=== PATIENT | female | born 1980 | race Caucasian/White ===

== ENCOUNTER 2019-07-31 08:26 | Outpatient (CLI) | payer BC, SELFPAY ==
--- NOTE | 2019-07-31 | US_ITS ---
WS: [id number] ULTRASOUND ABDOMEN CLINICAL INFORMATION: ELEVATED LIVER ENZYMES COMPARISON: None. FINDINGS: Liver Size: Enlarged Craniocaudal length: 18.7 cm. Echogenicity: Coarse with fatty infiltration Surface nodularity: None. Mass (size and location): None. Bile ducts Intrahepatic ducts: Normal. Common bile duct diameter: 2.8 mm. Gallbladder Removed Pancreas Normal as visualized. Right kidney: Normal. Hydronephrosis: None. Size: 12.3 cm x 6.1 cm x 5.4 cm Abdominal aorta and IVC Visualized portions are normal. Ascites: None. US/US liver [id number] IMPRESSION: 1. Hepatomegaly with diffuse infiltration. 2. Gallbladder is been removed. 3. Normal common bile duct. 4. No hydronephrosis in right kidney.
== END 2019-07-31 08:27 | disposition home or self-care (01) ==
LOC: RADOUTREAD 15:29
PROVIDERS: Family Provider Internal Medicine; Visit Provider Internal Medicine
DX: K76.0 Fatty (change of) liver, not elsewhere classified (principal); R74.8 Abnormal levels of other serum enzymes
CPT/HCPCS: 76705

== ENCOUNTER → 2020-01-19 08:31 | Day surgery (SDC) | payer BC, SELFPAY ==
[2020-01-19 09:20] VITALS: BP 131/82; PULSE 91; RESP 18; TEMP 36.6; O2SAT 97
[2020-01-19] MEDS: iron sucrose 200 MG in sodium chloride 0.9% (100 ml) 100 ML 220 MG IV (09:22)
== END ==
LOC: GILAB 08:36
PROVIDERS: Family Provider Internal Medicine; Visit Provider Internal Medicine
DX: D64.9 Anemia, unspecified (principal)
CPT/HCPCS: 15852; 96365; J1756

== ENCOUNTER 2020-01-26 08:18 | Day surgery (SDC) | payer BC, SELFPAY ==
[2020-01-26 09:15] VITALS: BP 122/80; PULSE 92; RESP 18; TEMP 35.6; O2SAT 97
[2020-01-26] MEDS: iron sucrose 200 MG in sodium chloride 0.9% (100 ml) 100 ML 220 MG IV (09:26)
== END 2020-01-26 23:00 ==
PROVIDERS: Family Provider Internal Medicine; Visit Provider Internal Medicine
DX: D64.9 Anemia, unspecified (principal); M54.12 Radiculopathy, cervical region; F17.210 Nicotine dependence, cigarettes, uncomplicated
CPT/HCPCS: 96365; 99213; 99215; J1439; J1756

== ENCOUNTER → 2020-02-02 07:50 | Day surgery (SDC) | payer BC, SELFPAY ==
[2020-02-02 08:03] VITALS: BP 153/78; PULSE 103; RESP 18; TEMP 36.2; O2SAT 97; BMI 47.3
[2020-02-02] MEDS: iron sucrose 200 MG in sodium chloride 0.9% (100 ml) 100 ML 220 MG IV (08:28)
== END ==
PROVIDERS: Family Provider Internal Medicine; Visit Provider Internal Medicine
DX: D64.9 Anemia, unspecified (principal)
CPT/HCPCS: J1756

== ENCOUNTER 2020-02-03 07:08 | Day surgery (SDC) | payer BC, SELFPAY ==
[2020-01-30 08:40] VITALS: BMI 46.0
[2020-02-03] MEDS: sodium chloride 0.9% 1,000 ML 30 ML IV (07:00)
[2020-02-03 07:37] VITALS: BP 133/79; PULSE 109; RESP 18; TEMP 36.2; O2SAT 97
[2020-02-03 07:39] LABS: Glucose Point of Care 169 mg/dL (70-110)
--- NOTE | 2020-02-03 07:39 | P.ANESASSM_ITS ---
Pre-Anesthetic Assessment Pre-Anesthetic Assessment: Height/Weight: Height 1.78 m Weight 145.603 kg Temp Pulse Resp BP Pulse Ox 97.2 F L 109 H 18 133/79 97 02/03/20 07:37 02/03/20 07:37 02/03/20 07:37 02/03/20 07:37 02/03/20 07:37 Preop Diagnosis: Anemia Proposed Procedure: Operation Date: 02/03/20 08:00 Proposed Procedures p EGD/Possible biopsy/[id number] 39313 D64.9(Not Applicable) - Jefferson Plaza MD s Colonoscopy/possible biopsy possible polypectomy(Not Applicable) - Jefferson Plaza MD Familial anesthetic complications: PONV Was Beta Yuyl taken within 24 hours: N/A Last intake: NPO > 8hrs Social: Social History: Tobacco and No alcohol Exam: Pre-Anes Outpt Exam: alert, oriented x 3, clear to auscultation bilaterally and regular rate & rhythm Airway: Cervical ROM: WNL MP: 3 Dentition: False CV/HEM: CV/HEM: HTN : : None reported Hepatic: Hepatic: Cirrohsis Comments: LIND Metabolic: Metabolic: DM, Hyperlipidemia and Morbid obesity Musc/skel: Musc/skel: Lower Back Pain Anesthetic Plan: ASA status: 3 Anesthesia: MAC Risk of > 500 ml blood loss (7ml/kg in children): No PFSH Anesthesia PFSH: Medical History (Updated 01/26/20 @ 15:21 by Stacey James MD) Anemia Diabetes Endometriosis Family history of colon cancer Gastroparesis Hyperlipidemia Hypertension PCOS (polycystic ovarian syndrome) Surgical History History of back surgery (~2017) History of hysterectomy (~2016) History of laparoscopic cholecystectomy (~2006) Status post colonoscopy Family History Denies family history of Anesthesia complication Bleeding disorder Social History Smoking and tobacco status: current every day smoker cigarettes Packs smoked per day: 1 Second hand smoke exposure: No Alcohol intake: never Desire information about alcohol rehabilitation?: No Adopted: No Caregiver/support person: Yes Lives independently: Yes Household members: spouse Housing: House Marital status: service: No 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
--- NOTE | 2020-02-03 07:44 | W.PM.OPSUD ---
Surgery/Procedure H&P Update DATE OF PROCEDURE: February 03, 2020 DATE H&P PERFORMED: 01/16/20 H&P UPDATE INFORMATION: I have reviewed H&P completed within last 30 days, I have examined patient prior to procedure and No changes to prior documentation PREOP DIAGNOSIS: Anemia PLANNED PROCEDURE: Operation Date: 02/03/20 08:00 Proposed Procedures p EGD/Possible biopsy/[id number] D64.9(Not Applicable) - Jefferson Plaza MD s Colonoscopy/possible biopsy possible polypectomy(Not Applicable) - Jefferson Plaza MD
[2020-02-03 08:56] VITALS: BP 153/98; PULSE 102; RESP 16; TEMP 36.6; O2SAT 96
--- NOTE | 2020-02-03 08:58 | ANE.PACU2 ---
Inpatient post-anesthesia follow up: Airway intact: Yes Vital signs: Temperature 97.8 F Pulse Rate 102 Respiratory Rate 16 Blood Pressure 153/98 Pulse Oximetry 96 Oxygen Delivery Me thod Nasal Cannula Oxygen Flow Rate 3 Fraction of Inspir ed Oxygen Hydration adequate: Yes Nausea and vomiting: No Pain level: 1 Mental status: Baseline
[2020-02-03 09:02] VITALS: BP 115/88; PULSE 94; RESP 18; O2SAT 98
== END 2020-02-03 09:12 | disposition home or self-care (01) ==
PROVIDERS: PCP Internal Medicine; Visit Provider Surgery
PROC: 0DJ08ZZ Inspection of Upper Intestinal Tract, Via Natural or Artificial Opening Endoscopic (ICD-10-PCS; CPT 43235; principal; 2020-02-03 08:00)
PROC: 0DJD8ZZ Inspection of Lower Intestinal Tract, Via Natural or Artificial Opening Endoscopic (ICD-10-PCS; CPT 45378; 2020-02-03 08:00)
DX: D50.9 Iron deficiency anemia, unspecified (principal); I10 Essential (primary) hypertension; E78.5 Hyperlipidemia, unspecified; E11.9 Type 2 diabetes mellitus without complications; E66.01 Morbid (severe) obesity due to excess calories; Z68.42 Body mass index [BMI] 45.0-49.9, adult; Z80.0 Family history of malignant neoplasm of digestive organs; E28.2 Polycystic ovarian syndrome; F17.210 Nicotine dependence, cigarettes, uncomplicated
CPT/HCPCS: 12345; 36416; 43235; 45378; 82962; J2704; J7030

== ENCOUNTER → 2020-02-09 07:38 | Day surgery (SDC) | payer BC, SELFPAY ==
[2020-02-09 08:13] VITALS: BP 127/77; PULSE 84; RESP 18; TEMP 36.2; O2SAT 97
[2020-02-09] MEDS: iron sucrose 200 MG in sodium chloride 0.9% (100 ml) 100 ML 220 MG IV (08:40)
== END ==
PROVIDERS: PCP Internal Medicine; Visit Provider Internal Medicine
DX: D64.9 Anemia, unspecified (principal)
CPT/HCPCS: 96365; J1756

== ENCOUNTER → 2020-02-16 07:46 | Day surgery (SDC) | payer BC, SELFPAY ==
[2020-02-16 08:04] VITALS: BP 138/84; PULSE 79; RESP 18; TEMP 36.2; O2SAT 97
[2020-02-16] MEDS: iron sucrose 200 MG in sodium chloride 0.9% (100 ml) 100 ML 220 MG IV (08:30)
== END ==
PROVIDERS: PCP Internal Medicine; Visit Provider Internal Medicine
DX: D64.9 Anemia, unspecified (principal)
CPT/HCPCS: 96365; J1756

== ENCOUNTER → 2020-07-27 07:57 | Outpatient (BNVA) | payer BC, SELFPAY | PROVIDERS: PCP Internal Medicine; Visit Provider Specialist | DX: M54.12 Radiculopathy, cervical region (principal); R20.0 Anesthesia of skin; F17.210 Nicotine dependence, cigarettes, uncomplicated | CPT/HCPCS: 95910 ==

== ENCOUNTER → 2020-09-13 08:45 | Outpatient (BNVA) | payer BC, SELFPAY | PROVIDERS: PCP Internal Medicine; Referring Provider Specialist; Visit Provider Specialist | DX: M54.12 Radiculopathy, cervical region (principal); M79.7 Fibromyalgia; F17.210 Nicotine dependence, cigarettes, uncomplicated | CPT/HCPCS: 20550; 20552; 95860; 99213; J1030; J3490 ==

== ENCOUNTER → 2020-10-25 11:47 | Outpatient (BNVA) | payer BC, SELFPAY | PROVIDERS: PCP Internal Medicine; Visit Provider Specialist | DX: M54.12 Radiculopathy, cervical region (principal); F17.210 Nicotine dependence, cigarettes, uncomplicated | CPT/HCPCS: 99213 ==

== ENCOUNTER 2020-11-03 08:48 | Outpatient (CLI) | payer BC, SELFPAY ==
--- NOTE | 2020-11-03 09:00 | CT_ITS ---
WS: [id number] CT CERVICAL SPINE TECHNIQUE: Noncontrast CT of the cervical spine with coronal and sagittal reformatted images. CLINICAL INFORMATION: M54.12 - Radiculopathy, cervical region COMPARISON: None. DLP: 2302.[address] scans at [facility] use at least one of these dose optimization techniques: automat ed exposure control; mA and/or kV adjustment per patient size (includes targeted exams where dose is matched to clinical indication); or iterative reconstruction. FINDINGS: Straightening of the normal cervical lordosis. No high-grade central canal narrowing. Normal C1-2 art iculation. Normal dens. C2-C3: Normal. C3-C4: Tiny shallow central protrusion. Slight effacement of ventral thecal sac. Spinal canal and for amen are patent. C4-C5: Mild disc osteophytic ridging. Tiny central C4 endplate osteophyte. Mild left foraminal narrow ing. Right foraminal and spinal canal are patent. Mild facet arthropathy. C5-C6: Mild disc osteophytic ridging. Mild right bony foraminal narrowing. Left foramen is patent. Sp inal canal is patent. Mild facet arthropathy. C6-C7: Disc osteophyte complex with endplate ridging. Mild left bony foraminal narrowing. Mild centra l canal stenosis. Foramen is patent. Mild facet arthropathy. C7-T1: Images are degraded at this level due to beam hardening artifact. Spinal canal foramen appear patent. Visualized posterior nasopharynx: Normal. Prevertebral soft tissues: Normal. CT/CT cervical spin wo con* [id number] IMPRESSION: 1. Straightening of the normal cervical lordosis. No high-grade central canal narrowing. 2. Osteophytic ridging with mild bony foraminal narrowing left C4-5, right C5- 6 and left C6-C7. 3. Mild facet arthropathy C4-C5 and C5-C6. 4. Images at the C7-T1 level are degraded due to beam hardening artifact from shoulder overlap.
== END 2020-11-03 08:49 | disposition home or self-care (01) ==
PROVIDERS: PCP Internal Medicine; Visit Provider Specialist
DX: M54.12 Radiculopathy, cervical region (principal); M47.812 Spondylosis without myelopathy or radiculopathy, cervical region
CPT/HCPCS: 72125

== ENCOUNTER → 2021-01-17 09:53 | Outpatient (BNVA) | payer BC, SELFPAY | PROVIDERS: PCP Family Medicine; Visit Provider Specialist | DX: M79.7 Fibromyalgia (principal); M47.812 Spondylosis without myelopathy or radiculopathy, cervical region; F17.210 Nicotine dependence, cigarettes, uncomplicated | CPT/HCPCS: 99214 ==

== ENCOUNTER → 2021-01-18 08:34 | Outpatient (BNVA) | payer BC, SELFPAY | PROVIDERS: PCP Family Medicine; Referring Provider Specialist; Visit Provider Anesthesiology Pain Medicine | DX: G89.29 Other chronic pain (principal); M47.812 Spondylosis without myelopathy or radiculopathy, cervical region; M50.90 Cervical disc disorder, unspecified, unspecified cervical region; M25.511 Pain in right shoulder; M25.512 Pain in left shoulder | CPT/HCPCS: 99205 ==

== ENCOUNTER → 2022-03-27 09:39 | Outpatient (BNVA) | payer BC, SELFPAY | PROVIDERS: PCP Registered Nurse; Referring Provider Specialist; Visit Provider Podiatrist Foot & Ankle Surgery | DX: G62.9 Polyneuropathy, unspecified (principal); G57.90 Unspecified mononeuropathy of unspecified lower limb; S90.851A Superficial foreign body, right foot, initial encounter; W22.8XXA Striking against or struck by other objects, initial encounter; M79.671 Pain in right foot; M79.672 Pain in left foot | CPT/HCPCS: 73630 ==

== ENCOUNTER 2022-05-02 11:06 | Emergency (ER) | payer BC, SELFPAY ==
[2022-05-02 11:15] VITALS: PULSE 125; RESP 18; TEMP 36.9; O2SAT 95; BMI 40.6
--- NOTE | 2022-05-02 11:32 | XR_ITS ---
WS: [id number] Exam: XR ribs RT mn 3V w CXR1V [id number] Date/Time of Exam: 05/02/2022 11:50 AM Reason For Exam: right rib pain after fall No acute right rib fractures noted. The right lung is fully expanded. No pleural effusion. XR/XR ribs RT mn 3V w CXR1V [id number] IMPRESSION: 1. No acute right rib fracture or pneumothorax. 2. No acute cardiopulmonary finding. Mild bibasal plaque atelectasis.
--- NOTE | 2022-05-02 12:10 | ED_ITS ---
HPI - General Adult General: Chief complaint: General Medical Stated complaint: Fall, chest injury Time Seen by Provider: 05/02/22 11:22 History of Present Illness: Patient is a 42-year-old female comes to the ED with rib pain. Patient says 2 days ago she was chasing after her dog and fell forward and her chest hit the ground. Since her fall injury she has been having some right rib pain. Pain worsens with certain torso movements and with deeper respirations. She rates her pain currently 9 out of 10. She currently takes gabapentin to help with her neuropathy and states that gabapentin has not helped third rib pain at all. She denies hitting her head or any loss of consci ousness. Associated symptoms: Deny chest pain, dyspnea, headache(s), nausea, rash, palpitations or vomiting Review of Systems Const: Denies: fever(s), chills or fatigue Eyes: Denies: change in vision or eye discomfort ENMT: Denies: throat pain, odynophagia, nasal discharge or nasal congestion Card: Denies: chest pain, palpitations, edema, swelling of feet/ankles, dyspnea on exertion or orthopnea Resp: Reports: pain on inspiration (Right rib pain with inspiration.); Denies: dyspnea, productive cough or non-productive cough GI: Denies: abdominal pain, nausea, vomiting, diarrhea, constipation or hematochezia : Denies: flank pain, dysuria or hematuria Musc: Reports: other (Right rib pain); Denies: neck pain, back pain or extremity swelling Skin/Breast: Denies: rash or new lesions Neuro: Denies: headache(s), numbness in extremities or weakness in extremities [facility] PFSH: Medical History (Updated 05/02/22 @ 12:44 by CESARIO Harden) Anemia Diabetes Endometriosis Family history of colon cancer Gastroparesis Hyperlipidemia Hypertension PCOS (polycystic ovarian syndrome) Surgical History H/O esophagogastroduodenoscopy (02/03/20) History of back surgery (~2017) History of hysterectomy (~2015) History of laparoscopic cholecystectomy (~2006) Status post colonoscopy (02/03/20) normal Family History Denies family history of Anesthesia complication Bleeding disorder Social History Smoking and tobacco status: current every day smoker (Half a pack-a full pack ) cigarettes Packs smoked per day: 1 Second hand smoke exposure: No Alcohol intake: never Desire information about alcohol rehabilitation?: No Adopted: No Caregiver/support person: Yes Lives independently: Yes Household members: spouse Housing: House Marital status: service: No 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 Pets and animals: No History of recent travel: No Leisure activites: exercise Sexually active: Yes Current gender identity: Female Akosua/Jewish: Judaism Physical Exam Const: COMMON NORMALS: patient oriented x3 and alert GENERAL APPEARANCE: cooperative HENMT: COMMON NORMALS: normocephalic HEAD & SCALP: normocephalic MOUTH: Normal oral and palatal mucosa present THROAT: posterior oropharynx normal and uvula midline Neck/C-Spine: COMMON NORMALS: supple GENERAL: Yes normal visual inspection Chest: CHEST: Yes tenderness rib right anterior-axillary line involving the 8th rib, involving the 9th rib and involving the 10th rib Resp: COMMON NORMALS: normal respiratory effort, No retractions, No use of accessory muscles and clear to auscultation bilaterally AUSCULTATION: clear to auscultation bilaterally Cardio: COMMON NORMALS: regular rate, regular rhythm, S1 normal heart sound present, S2 normal heart sound present, No gallops present (Cardio), No clicks present (Cardio), No murmurs present (Cardio) and Peripheral pulses 2+ throughout RATE: regular rate RHYTHM: regular rhythm HEART SOUNDS: S1 normal heart sound present and S2 normal heart sound present PERIPHERAL PULSES: Peripheral pulses 2+ throughout GI: COMMON NORMALS: Normal to inspection, nondistended, normoactive bowel sounds present, Soft to palpation, non-tender and no masses PALPATION: Yes S oft to palpation : COMMON NORMALS: Yes no CVA tenderness BLADDER/KIDNEY EXAM: Yes no CVA tenderness Back/Pelvis: COMMON NORMALS: no CVA tenderness Extremity: COMMON NORMALS: normal to inspection Neuro: COMMON NORMALS: patient oriented x3 SENSORIUM/ORIENTATION: Yes alert GAIT: Yes Normal gait present Skin: GENERAL SKIN EXAM: dry skin Course Vital Signs: Vital signs: Vital Signs Temperature 98.4 F 05/02/22 11:15 Pulse Rate 125 H 05/02/22 11:15 Respiratory Rate 18 05/02/22 11:15 Pulse Oximetry 95 05/02/22 11:15 Oxygen Delivery Me thod 05/02/22 11:15 MDM - General Adult Medical Decision Making Patient is a 42-year-old female comes to the ED with rib pain. Patient says 2 days ago she was chasing after her dog and fell forward and her chest hit the ground. Since her fall injury she has been having some right rib pain. Vitals are stable. Patient appears nontoxic in no acute distress. She has some right eighth ninth and 10th rib tenderness to palpation. The rest of exam is benign. Rib and chest x-ray showed no acute right rib fractures or any pneumothorax. She was given a dose of hydrocodone here in the ED to help with pain. She was stable for discharge home diagnosed with rib pain. Sent home with a prescription for ibuprofen 800 mg to help with pain. Return to ED precautions given. Patient understood and agreed with plan. Lab Data Radiology Impressions Ribs X-Ray 05/02/22 11:32 IMPRESSION: 1. No acute right rib fracture or pneumothorax. 2. No acute cardiopulmonary finding. Mild bibasal plaque atelectasis. Discharge Plan Discharge Patient Disposition: Home Clinical Impression: Rib pain Condition: Stable Prescriptions: New ibuprofen 800 mg tablet 800 mg PO Q8H PRN (Reason: pain) Qty: 20 0RF No Action ferrous fumarate 324 mg (106 mg iron) tablet 324 mg PO DAILY insulin aspart U-100 [Novolog Flexpen U-100 Insulin] 100 unit/mL (3 mL) insulin pen 10 unit SUBCUT TID losartan 25 mg tablet 25 mg PO DAILY citalopram 40 mg tablet 40 mg PO DAILY pioglitazone [Actos] 30 mg tablet 30 mg PO DAILY Basaglar KwikPen U-100 Insulin 100 unit/mL (3 mL) insulin pen 80 unit SUBCUT BID divalproex 250 mg tablet extended release 24 hr PO dicyclomine 10 mg capsule 10 mg PO QID A-C-E-zinc ox-cupric ox-lutein 7,160 unit- 113 mg-0.5 mg tablet 2 tab PO BID cholecalciferol (vitamin D3) 1,250 mcg (50,000 unit) capsule PO hyoscyamine sulfate 0.125 mg tablet 0.125 mg PO QID Emgality Pen 120 mg/mL pen injector 240 mg SUBCUT ONCE Qty: 2 0RF Rx Instructions: Loading dose for the first month Emgality Pen 120 mg/mL pen injector 120 mg SUBCUT ONCE Qty: 1 0RF diazepam 10 mg tablet 10 mg PO BID PRN (Reason: sedation) Qty: 2 0RF Rx Instructions: take 1-2 prior to MRI capsaicin 0.025 % cream 1 applic topical DAILY Qty: 25 0RF Rx Instructions: Apply to affected area once daily. Do not wash area for at least 30 min after application gabapentin 300 mg capsule See Rx Instructions .ROUTE .COMPLEX Qty: 240 0RF Dose Instruction: TAKE 2 CAPSULES BY MOUTH 4 TIMES A DAY Rx Instructions: TAKE 2 CAPSULES BY MOUTH 4 TIMES A DAY atorvastatin 40 mg Tablet 40 mg PO DAILY diphenhydramine HCl 50 mg Capsule 50 mg PO BEDTIME PRN (Reason: Insomnia) Discharge Orders: Discharge ED (Routine); Ordered 05/02/22 Ordered By: Oc Hall Referrals: Enedina Brizuela [Primary Care Provider] - Discharge Diet: Regular Discharge Activity: Increase activity as tolerated Patient Instructions: Opioid Safety Activity Restrictions/Additional Instructions: Follow-up with medical provider as directed in the next 5-7 days for reevaluation. Take medications as prescribed. Return to the ER or your medical provider if condition worsens. Please read and understand discharge instructions. Thank you for choosing [facility] for your healthcare needs today. Please realize this is an emergency room and that we are providing you with a medical screening exam and this may not be complete and all inclusive of all the testing and or work up that you may need to determine your ailment or severity of your illness. It is very important that you follow up as instructed or that you return to the Emergency Department should you have concerns or if your condition changes or worsens in any way. Coding Level of Care Code ED Ballet Master/Mistress for Velia Cantu Exam Comprehensive
[2022-05-02] MEDS: HYDROcodone-acetaminophen 7.5-325 mg Tablet 1 TAB PO (12:23)
== END 2022-05-02 12:53 | disposition home or self-care (01) ==
PROVIDERS: Emergency Provider Physician Assistant; PCP Registered Nurse
DX: R07.81 Pleurodynia (principal)
CPT/HCPCS: 71101; 99283

== ENCOUNTER 2022-05-15 14:49 | Outpatient (CLI) | payer BC, SELFPAY ==
--- NOTE | 2022-05-15 15:15 | MR_ITS ---
WS: [id number] MRI CERVICAL SPINE NONCONTRAST TECHNIQUE: Sagittal T1, T2 and STIR imaging. Axial T2, gradient, and fiesta imaging. CLINICAL INFORMATION: M47.812 - Spondylosis without myelopathy or radiculopathy... FINDINGS: Straightening of the normal cervical lordosis. Cord signal is normal. No high-grade central canal effie rowing. C2-C3: Mild LEFT and no significant RIGHT foraminal narrowing. Spinal canal is patent. Mild facet art hropathy. C3-C4: No significant disc bulging. Spinal canal and foramen are patent. Mild facet arthropathy. C4-C5: Mild LEFT and no significant RIGHT foraminal narrowing. Mild facet arthropathy. Spinal canal i s patent. C5-C6: Mild disc bulging with slight effacement of the ventral thecal sac. Mild LEFT greater than RIG HT bony foraminal narrowing. Spinal canal is patent. C6-C7: Mild disc bulging with slight effacement of the ventral thecal sac. Mild LEFT and no significa nt RIGHT foraminal narrowing. Spinal canal is patent. C7-T1: Mild osteophytic ridging. Mild LEFT and no significant RIGHT foraminal narrowing. Spinal canal is patent. Visualized brain stem structures: Normal. Prevertebral soft tissues: Normal. MR/MR cervical spin wo con* [id number] IMPRESSION: 1. Straightening of the normal cervical lordosis. No high-grade central canal narrowing. Cord signal is normal. 2. Mild LEFT C4-C5, LEFT greater than RIGHT C5-C6, and LEFT C6-C7 foraminal na rrowing. Mild LEFT C7-T1 foraminal narrowing. 3. Cord signal is normal. 4. Mild facet arthropathy in the mid cervical spine C4-C5 and C5-C6.
== END 2022-05-15 14:50 | disposition home or self-care (01) ==
LOC: RAD 14:50
PROVIDERS: PCP Registered Nurse; Visit Provider Specialist
DX: M47.812 Spondylosis without myelopathy or radiculopathy, cervical region (principal); M50.90 Cervical disc disorder, unspecified, unspecified cervical region
CPT/HCPCS: 72141

== ENCOUNTER 2022-07-14 06:00 | Outpatient (RCR) | payer BC, SELFPAY | END 2022-08-08 23:59 | disposition home or self-care (01) | LOC: SPT 06:00 | PROVIDERS: PCP Registered Nurse; Visit Provider Specialist | DX: M54.2 Cervicalgia (principal) | CPT/HCPCS: 97110; 97162 ==

== ENCOUNTER 2022-08-09 06:00 | Outpatient (RCR) | payer BC, SELFPAY | END 2022-09-05 23:59 | disposition home or self-care (01) | LOC: SPT 06:00 | PROVIDERS: PCP Registered Nurse; Visit Provider Specialist | DX: M54.2 Cervicalgia (principal) | CPT/HCPCS: 97110 ==

== ENCOUNTER 2022-09-18 19:29 | Emergency (ER) | payer BC, SELFPAY ==
[2022-09-18 19:34] VITALS: BP 149/103; PULSE 106; RESP 18; TEMP 36.7; O2SAT 97
[2022-09-18 20:17] LABS: Basophils # 0.1 10^3/uL (0.0-0.1); Basophils % 0.7 %; Eosinophils # 0.3 10^3/uL (0.0-0.8); Eosinophils % 3.6 %; Hematocrit 42.3 % (37.0-47.0); Hemoglobin 13.8 g/dL (11.5-15.3); Lymphocytes # 2.3 10^3/uL (0.8-4.8); Lymphocytes % 30.9 %; Mean Corpuscular HGB Conc 32.6 g/dL (30.0-36.0); Mean Corpuscular Volume 88.9 fl (81-99); Monocytes # 0.5 10^3/uL (0.2-0.9); Neutrophils % 58.4 %; Nucleated Red Blood Cells % 0 %; Platelet Count 319 10^3/cmm (130-400); Red Blood Count 4.76 10^6/uL (4.1-5.3); Red Cell Distribution Width 12.7 % (12.1-15.1); White Blood Count 7.5 10^3/uL (4.0-10.0)
[2022-09-18 20:33] LABS: Alanine Aminotransferase 30 U/L (0-33); Albumin Level 4.4 g/dL (3.5-5.2); Alkaline Phosphatase 149 U/L (35-105); Anion Gap 16.5 (5-19); Aspartate Amino Transferase 31 U/L (0-32); Blood Urea Nitrogen 7 mg/dL (6-20); Calcium 9.7 mg/dL (8.5-10.5); Carbon Dioxide 29 mmol/L (22-29); Chloride 102 mmol/L (98-107); Globulin 3.7 g/dL (1.3-4.6); Glomerular Filtration Rate 110.7 mL/min (90-130); Glucose 116 mg/dL (65-115); Lipase 32 U/L (13-60); Osmolality Calculated 295 mOsm/kg (285-295); Potassium 4.5 mmol/L (3.5-5.1); Sodium 143 mmol/L (136-145); Total Bilirubin 0.5 mg/dL (0.15-1.2); Total Protein 8.1 g/dL (6.6-8.7)
--- NOTE | 2022-09-18 22:14 | W.ED.ABDPA2 ---
HPI - Abdominal Pain General: Chief Complaint: Abdominal Pain Stated Complaint: Vomiting\Dehydrated Time Seen by Provider: 09/18/22 22:11 History of Present Illness: 42-year-old female comes in today with complaints of abdominal pain and nausea and vomiting. Patient has a history of recurrent nausea and vomiting with abdominal pain due to gastroparesis. Patient states that after having her gallbladder removed she has had difficulties with gastroparesis and abdominal discomfort. Patient also has had a hysterectomy, history of neuropathy, intervertebral disc disease, and anemia. Patient appears nontoxic. Patient appears in moderate pain. Associated Symptoms: Reports nausea and vomiting; Denies constipation, diarrhea and fever(s) Review of Systems Const: Denies: fever(s) ENMT: Denies: throat pain Card: Denies: chest pain Resp: Denies: dyspnea GI: Reports: abdominal pain, nausea and vomiting; Denies: diarrhea or constipation : Denies: difficulty voiding Musc: Denies: neck pain or back pain Skin/Breast: Denies: rash PFSH ED PFSH: Medical History (Updated 09/18/22 @ 23:49 by BENITO Rosado) Anemia Diabetes Endometriosis Family history of colon cancer Gastroparesis Hyperlipidemia Hypertension PCOS (polycystic ovarian syndrome) Surgical History H/O esophagogastroduodenoscopy (02/03/20) History of back surgery (~2017) History of hysterectomy (~2015) History of laparoscopic cholecystectomy (~2006) Status post colonoscopy (02/03/20) normal Family History Denies family history of Anesthesia complication Bleeding disorder Social History Smoking and tobacco status: current every day smoker (Half a pack-a full pack ) cigarettes Packs smoked per day: 1 Second hand smoke exposure: No Alcohol intake: never Desire information about alcohol rehabilitation?: No Adopted: No Caregiver/support person: Yes Lives independently: Yes Household members: spouse Housing: House Marital status: service: No 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 Pets and animals: No Leisure activites: exercise Sexually active: Yes Current gender identity: Female Akosua/Restorationist: Sikhism Physical Exam Const: COMMON NORMALS: alert HENMT: COMMON NORMALS: normocephalic HEAD & SCALP: normocephalic Neck/C-Spine: COMMON NORMALS: full ROM Resp: COMMON NORMALS: normal respiratory effort and clear to auscultation bilaterally AUSCULTATION: clear to auscultation bilaterally Cardio: COMMON NORMALS: regular rate and regular rhythm RATE: regular rate RHYTHM: regular rhythm GI: COMMON NORMALS: Soft to palpation AUSCULTATION: Yes normoactive bowel sounds PALPATION: Yes Soft to palpation and Yes Tenderness to palpation present (GI) (General) : COMMON NORMALS: Yes no CVA tenderness BLADDER/KIDNEY EXAM: Yes no CVA tenderness Back/Pelvis: COMMON NORMALS: no CVA tenderness Extremity: COMMON NORMALS: no pedal edema Neuro: SENSORIUM/ORIENTATION: Yes alert Skin: COMMON NORMALS: turgor normal GENERAL SKIN EXAM: turgor normal Course Vital Signs: Vital signs: Vital Signs Temperature 98.1 F 09/18/22 19:34 Pulse Rate 106 H 09/18/22 19:34 Respiratory Rate 18 09/18/22 19:34 Blood Pressure 149/103 09/18/22 19:34 Pulse Oximetry 97 09/18/22 19:34 Oxygen Delivery Me thod 09/18/22 19:34 MDM - Abdominal Pain Medical Decision Making 42-year-old female comes in today for complaints of increased abdominal discomfort and nausea and vomiting due to gastroparesis. Patient had talked to her primary care provider who recommended that she come to the for possible dehydration. On exam patient is alert and oriented. Patient appears in mild to moderate pain. Abdomen soft with some generalized tenderness. Bowel sounds are present. Skin is warm and dry. Vital signs are normal except for some mild elevation of blood pressure. Differential diagnosis includes but not limited to gastroparesis, bowel obstruction, gastritis, gastroenteritis. CBC, CMP were unremarkable. Urinalysis showed no signs of infection. Patient was treated 1 L of IV fluids and 1 mg of Dilaudid with resolution of symptoms. The patient probably had some mild dehydration secondary to her persistent nausea and vomiting from her gastroparesis. Recommend follow-up with primary care for further evaluation and recommendations. Patient may need to see a grades 9 12 tutor for further care. Patient reported understanding and agreed to plan. Lab Data 09/18/22 20:05 09/18/22 20:05 Labs/Radiology: Laboratory Results WBC 7.5 10^3/uL (4.0-10.0) 09/18/22 20:05 RBC 4.76 10^6/uL (4.1-5.3) 09/18/22 20:05 Hgb 13.8 g/dL (11.5-15.3) 09/18/22 20:05 Hct 42.3 % (37.0-47.0) 09/18/22 20:05 MCV 88.9 fl (81-99) 09/18/22 20:05 MCH 29.0 pg (28.0-34.0) 09/18/22 20:05 MCHC 32.6 g/dL (30.0-36.0) 09/18/22 20:05 RDW 12.7 % (12.1-15.1) 09/18/22 20:05 Plt Count 319 10^3/cmm (130-400) 09/18/22 20:05 MPV 10.0 fL (7.4-10.4) 09/18/22 20:05 Neut % (Auto) 58.4 % 09/18/22 20:05 Lymph % (Auto) 30.9 % 09/18/22 20:05 Howard % (Auto) 6.0 % 09/18/22 20:05 Eos % (Auto) 3.6 % 09/18/22 20:05 Baso % (Auto) 0.7 % 09/18/22 20:05 Neut # (Auto) 4.40 10^3/uL (1.8-7.7) 09/18/22 20:05 Lymph # (Auto) 2.3 10^3/uL (0.8-4.8) 09/18/22 20:05 Howard # (Auto) 0.5 10^3/uL (0.2-0.9) 09/18/22 20:05 Eos # (Auto) 0.3 10^3/uL (0.0-0.8) 09/18/22 20:05 Baso # (Auto) 0.1 10^3/uL (0.0-0.1) 09/18/22 20:05 Nucleated RBC % (auto) 0 % 09/18/22 20:05 Nucleated RBCs # 0.0 /100WBC 09/18/22 20:05 Sodium 143 mmol/L (136-145) 09/18/22 20:05 Potassium 4.5 mmol/L (3.5-5.1) 09/18/22 20:05 Chloride 102 mmol/L (98-107) 09/18/22 20:05 Carbon Dioxide 29 mmol/L (22-29) 09/18/22 20:05 Anion Gap 16.5 (5-19) 09/18/22 20:05 BUN 7 mg/dL (6-20) 09/18/22 20:05 Creatinine 0.6 mg/dL (0.5-0.9) 09/18/22 20:05 GFR Calculation 110.7 mL/min (90-130) 09/18/22 20:05 Glucose 116 mg/dL (65-115) H 09/18/22 20:05 Calculated Osmolality 295 mOsm/kg (285-295) 09/18/22 20:05 Calcium 9.7 mg/dL (8.5-10.5) 09/18/22 20:05 Total Bilirubin 0.5 mg/dL (0.15-1.2) 09/18/22 20:05 AST 31 U/L (0-32) 09/18/22 20:05 ALT 30 U/L (0-33) 09/18/22 20:05 Alkaline Phosphatase 149 U/L (35-105) H 09/18/22 20:05 Total Protein 8.1 g/dL (6.6-8.7) 09/18/22 20:05 Albumin 4.4 g/dL (3.5-5.2) 09/18/22 20:05 Globulin 3.7 g/dL (1.3-4.6) 09/18/22 20:05 Lipase 32 U/L (13-60) 09/18/22 20:05 HCG, Qual Negative (Negative) 09/18/22 22:20 Urine Color Yellow (Yellow) 09/18/22 22:20 Urine Appearance Clear (CLEAR) 09/18/22 22:20 Urine pH 6 (5-7) 09/18/22 22:20 Ur Specific [employer] 1.020 (1.005-1.030) 09/18/22 22:20 Urine Protein Neg (Negative) 03/13/23 22:20 Urine Glucose (UA) Norm (Normal) 09/18/22 22:20 Urine Ketones 1+ (Negative) H 09/18/22 22:20 Urine Blood Neg (Negative) 09/18/22 22:20 Urine Nitrate Negative (Negative) 09/18/22 22:20 Urine Bilirubin Neg (Negative) 09/18/22 22:20 Urine Urobilinogen Norm mg/dL (Negative) 09/18/22 22:20 Ur Leukocyte Esterase Negative (Negative) 09/18/22 22:20 Discharge Plan Discharge Patient Disposition: Home Clinical Impression: Abdominal pain Qualifiers: Abdominal location: generalized Qualified Code(s): R10.84 - Generalized abdominal pain Nausea & vomiting Qualifiers: Vomiting type: bilious vomiting Qualified Code(s): R11.14 - Bilious vomiting Condition: Stable Prescriptions: New hydrocodone-acetaminophen 5-325 mg tablet 1 tab PO Q8H PRN (Reason: pain (scale score 7-10)) Qty: 6 0RF No Action insulin aspart U-100 [Novolog FlexPen U-100 Insulin] 100 unit/mL (3 mL) insulin pen 10 unit SUBCUT TID losartan 25 mg tablet 25 mg PO DAILY citalopram 40 mg tablet 40 mg PO DAILY pioglitazone [Actos] 30 mg tablet 30 mg PO DAILY Basaglar KwikPen U-100 Insulin 100 unit/mL (3 mL) insulin pen 80 unit SUBCUT BID divalproex 250 mg tablet extended release 24 hr PO dicyclomine 10 mg capsule 10 mg PO QID A-C-E-zinc ox-cupric ox-lutein 7,160 unit- 113 mg-0.5 mg tablet 2 tab PO BID cholecalciferol (vitamin D3) 1,250 mcg (50,000 unit) capsule PO hyoscyamine sulfate 0.125 mg tablet 0.125 mg PO QID Emgality Pen 120 mg/mL pen injector See Rx Instructions .ROUTE .COMPLEX Qty: 2 0RF Dose Instruction: 240 MG (2 ML) SUBCUTANEOUSLY ONCE LOADING DOSE FOR THE FIRST MONTH Rx Instructions: 240 MG (2 ML) SUBCUTANEOUSLY ONCE LOADING DOSE FOR THE FIRST MONTH Emgality Pen 120 mg/mL pen injector 120 mg SUBCUT ONCE Qty: 1 0RF capsaicin 0.025 % cream 1 applic topical DAILY Qty: 25 0RF Rx Instructions: Apply to affected area once daily. Do not wash area for at least 30 min after application gabapentin 300 mg capsule See Rx Instructions .ROUTE .COMPLEX Qty: 240 0RF Dose Instruction: TAKE 2 CAPSULES BY MOUTH 4 TIMES A DAY Rx Instructions: TAKE 2 CAPSULES BY MOUTH 4 TIMES A DAY atorvastatin 40 mg Tablet 40 mg PO DAILY diphenhydramine HCl 50 mg Capsule 50 mg PO BEDTIME PRN (Reason: Insomnia) Discharge Orders: Discharge ED (Routine); Ordered 09/18/22 Ordered By: Augusto Mccollum Referrals: Enedina Brizuela [Primary Care Provider] - Discharge Diet: Usual diet Discharge Activity: Increase activity as tolerated Patient Instructions: Abdominal Pain (ED), Opioid Safety Activity Restrictions/Additional Instructions: Drink plenty of fluids. Continue with routine medications as directed. Use hydrocodone for severe pain. Follow-up with primary care or GI specialist for further treatment and evaluation. Return to ER for high fever greater than 100.4, blood in vomit or stool, or uncontrolled pain. Coding Level of Care Code ED Software Quality Assurance Specialist for Velia Cantu
--- NOTE | 2022-09-18 22:26 | XRR_ITS ---
PROCEDURE INFORMATION: Exam: XR Abdomen Exam date and time: 09/18/2022 10:33 PM Age: 42 years old Clinical indication: Abdominal pain; Acute; Prior surgery; Surgery date: 6+ months; Surgery type: Total hyst choley; Additional info: R/O constipation, bowel obstruction TECHNIQUE: Imaging protocol: Radiologic exam of the abdomen. Views: Frontal supine view of the abdomen. 1 View. COMPARISON: CT abdomen pelvis w con* [id number] 11/20/2018 2:41 PM FINDINGS: Gastrointestinal tract: No dilated bowel to suggest obstruction. There does not appear to be an abnormally large amount of stool in the colon. Intraperitoneal space: No definite abnormal abdominal masses or specific abnormal calcifications. Bones/joints: No significant acute finding. XR/XR KUB [id number] IMPRESSION: 1. Nonspecific abdomen, no evidence of obstruction. 2. Other details discussed above.
[2022-09-18 22:35] LABS: Add Urine Microscopic? NO; Charge for UA Resulting for Rev
[2022-09-18] MEDS: ondansetron 2 mg/ML SDV 2 mL 4 MG IVP (22:36)
[2022-09-18] MEDS: HYDROmorphone 1 mg/mL INJ 1 mL IVP (22:36)
[2022-09-18] MEDS: sodium chloride 0.9% 1,000 ML 999 ML IV (22:36)
[2022-09-18 22:52] LABS: Urine Color Yellow (Yellow)
[2022-09-18 22:53] LABS: Bilirubin Urine Neg (Negative); Blood Urine Neg (Negative); Glucose Urine UA Norm (Normal); HCG Qualitative Urine. Negative (Negative); Ketones Urine 1+ (Negative); Leukocyte Esterase Urine Negative (Negative); Nitrate Urine Negative (Negative); Protein Urine Neg (Negative); Urine Appearance Clear (CLEAR); Urobilinogen Urine Norm (Negative); pH Urine 6 (5-7)
== END 2022-09-19 00:34 | disposition home or self-care (01) ==
PROVIDERS: Emergency Medicine; Emergency Provider Nurse Practitioner Family; PCP Registered Nurse
DX: R10.84 Generalized abdominal pain (principal); R11.14 Bilious vomiting; Z79.4 Long term (current) use of insulin; E11.9 Type 2 diabetes mellitus without complications; E78.5 Hyperlipidemia, unspecified; I10 Essential (primary) hypertension; F17.210 Nicotine dependence, cigarettes, uncomplicated
CPT/HCPCS: 36415; 74018; 80053; 81003; 81025; 83690; 85025; 96361; 96374; 96375; 99284; J1170; J2405; J7030

== ENCOUNTER 2022-11-17 16:58 | Emergency (ER) | payer BC, SELFPAY ==
[2022-11-17 17:02] VITALS: BP 151/88; PULSE 122; RESP 18; TEMP 37.5; O2SAT 97; BMI 40.6
[2022-11-17 17:31] VITALS: BP 142/117; PULSE 121; RESP 14; O2SAT 97
--- NOTE | 2022-11-17 17:39 | CTR_ITS ---
PROCEDURE INFORMATION: Exam: CT Head Without Contrast Exam date and time: 11/17/2022 6:08 PM Age: 42 years old Clinical indication: Pain; Headache not specified; Patient HX: No recent trauma; Additional info: Worst headache ever TECHNIQUE: Imaging protocol: Computed tomography of the head without contrast. Sagittal and coronal reformatted images were created and reviewed. Radiation optimization: All CT scans at this facility use at least one of these dose optimization techniques: automated exposure control; mA and/or kV adjustment per patient size (includes targeted exams where dose is matched to clinical indication); or iterative reconstruction. REPORTING DATA: Count of CT and Cardiac NM exams in prior 12 months: This patient has received 0 known CTs and 0 known cardiac nuclear medicine studies in the 12 months prior to the current study. COMPARISON: MR cervical spin wo con* [id number] 05/15/2022 3:15 PM RADIATION DOSE METRICS: Total DLP (mGy-cm): 1337.99 FINDINGS: Brain: No acute intracranial hemorrhage. No acute infarct. No intra-axial or extra-axial masses. Taylor-white matter differentiation is preserved. No cerebral edema. No extra-axial fluid collections. No midline shift. No evidence for Chiari 1 malformation. Cerebral ventricles: No hydrocephalus. Paranasal sinuses: Mild to moderate mucoperiosteal thickening in the paranasal sinuses with moderate air-fluid levels in the right frontal sinus and visualized right and left maxillary sinuses. Mastoid air cells: Mastoid air cells are clear bilaterally. Orbital cavities: Globes and lenses, extraocular muscles, and optic nerves are intact bilaterally. No acute intraorbital abnormality. Bones/joints: No acute fracture. Soft tissues: No acute abnormality of the extracranial soft tissues. Vasculature: Minimal atherosclerotic changes in the visualized arteries. CT/CT head wo con* [id number] IMPRESSION: 1. No acute abnormality of the brain. 2. Pansinus disease with findings suspicious for acute sinusitis in the right frontal sinus and visualized right and left maxillary sinuses.
--- NOTE | 2022-11-17 17:40 | W.ED.HA ---
HPI - Headache General: Chief Complaint: Headache Stated Complaint: headache Time Seen by Provider: 11/17/22 17:05 History of Present Illness: Patient is a 42-year-old female comes to the ED with a headache. Patient says she has a history of migraines but states that this is not like her typical migraines and this is the worst headache she has ever had. She was seen at [facility] before coming here and they told her to come to the ED to have head CT done. Headache started at around noon today and she described as a sharp pain on the right side of her forehead. It then became constant aching pain in right side of forehead that radiates to the left side of her forehead. She rates headache a 9 out of 10. She endorses having nausea and photophobia. She has not taken anything for her headache today. Endorses some pulsing type blurry vision that correlates with the pain. Denies any numbness tingling or weakness to 1 side of her body or face. Denies any head injuries, fevers or emesis. Associated symptoms: Reports nausea; Deny chest pain, fever(s), rash or vomiting Review of Systems Const: Denies: fever(s), chills or fatigue Eyes: Reports: blurry vision and photophobia; Denies: change in vision or eye discomfort ENMT: Denies: throat pain, odynophagia, nasal discharge or nasal congestion Card: Denies: chest pain, palpitations, edema, swelling of feet/ankles, dyspnea on exertion or orthopnea Resp: Denies: dyspnea, productive cough or non-productive cough GI: Reports: nausea; Denies: abdominal pain, vomiting, diarrhea, constipation or hematochezia : Denies: flank pain, dysuria or hematuria Musc: Denies: neck pain, back pain or extremity swelling Skin/Breast: Denies: rash or new lesions Neuro: Reports: headache(s); Denies: numbness in extremities or weakness in extremities [facility] ED PFSH: Medical History (Updated 11/17/22 @ 21:17 by CESARIO Harden) Anemia Diabetes Endometriosis Family history of colon cancer Gastroparesis Hyperlipidemia Hypertension PCOS (polycystic ovarian syndrome) Surgical History H/O esophagogastroduodenoscopy (02/03/20) History of back surgery (~2018) History of hysterectomy (~2016) History of laparoscopic cholecystectomy (~2006) Status post colonoscopy (02/03/20) normal Family History Denies family history of Anesthesia complication Bleeding disorder Social History Smoking and tobacco status: current every day smoker (Half a pack-a full pack ) cigarettes Packs smoked per day: 1 Second hand smoke exposure: No Alcohol intake: never Desire information about alcohol rehabilitation?: No Substance/Drug Use: never Adopted: No Caregiver/support person: Yes Lives independently: Yes Household members: spouse Housing: House Marital status: service: No 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 Pets and animals: No Leisure activites: exercise Sexually active: Yes Do you think of yourself as: Straight/Heterosexual Current gender identity: Female Akosua/Holiness: Congregational Physical Exam Const: COMMON NORMALS: patient oriented x3 and alert GENERAL APPEARANCE: cooperative HENMT: COMMON NORMALS: normocephalic HEAD & SCALP: normocephalic FACE & SINUS: sinus tenderness frontal (Bilateral tenderness) MOUTH: Normal oral and palatal mucosa present THROAT: posterior oropharynx normal and uvula midline Eye: COMMON NORMALS: Equal, round and reactive pupils present and EOMs intact bilaterally GENERAL EYE: appearance normal, both eyes and all related structures PUPIL: Yes Equal, round and reactive pupils present Neck/C-Spine: COMMON NORMALS: supple GENERAL: Yes normal visual inspection Lymph: LYMPHATIC: no lymphadenopathy noted Resp: COMMON NORMALS: normal respiratory effort, No retractions, No use of accessory muscles and clear to auscultation bilaterally AUSCULTATION: clear to auscultation bilaterally Cardio: COMMON NORMALS: regular rate, regular rhythm, S1 normal heart sound present, S2 normal heart sound present, No gallops present (Cardio), No clicks present (Cardio), No murmurs present (Cardio) and Peripheral pulses 2+ throughout RATE: regular rate RHYTHM: regular rhythm HEART SOUNDS: S1 normal heart sound present and S2 normal heart sound present PERIPHERAL PULSES: Peripheral pulses 2+ throughout GI: COMMON NORMALS: Normal to inspection, nondistended, normoactive bowel sounds present, Soft to palpation, non-tender and no masses PALPATION: Yes Soft to palpation : COMMON NORMALS: Yes no CVA tenderness BLADDER/KIDNEY EXAM: Yes no CVA tenderness Back/Pelvis: COMMON NORMALS: no CVA tenderness Extremity: GENERAL: Yes normal exam except as noted Neuro: COMMON NORMALS: patient oriented x3, CN's II-XII intact bilaterally, moves all extremities, no focal motor deficits and no sensory deficits noted SENSORIUM/ORIENTATION: Yes alert SENSORY EXAM: Yes extremities (intact) MOTOR EXAM: 5/5 motor strength present throughout Skin: COMMON NORMALS: no rashes or lesions noted GENERAL SKIN EXAM: no rashes or lesions noted and dry skin Course Vital Signs: Vital signs: Vital Signs Temperature 99.5 F 11/17/22 17:02 Pulse Rate 98 11/17/22 20:43 Respiratory Rate 18 11/17/22 20:43 Blood Pressure 138/67 11/17/22 20:43 Pulse Oximetry 96 11/17/22 20:43 Oxygen Delivery Me thod Room Air 11/17/22 20:43 MDM - Headache Medical Decision Making Patient is a 42-year-old female who comes to the ED with migraine headache. She has a history of migraine headaches but says this is the worst headache she is ever had and seems different than her past migraines. Pain is located in the right forehead region. She rates it a 9 out of 10. Endorses light sensitivity and nausea and vomiting. Vitals are stable. Neuro exam shows no deficits and patient has frontal sinus tenderness bilaterally. Rest of exam is benign. CT of head shows no acute findings but did note some signs of frontal sinusitis. Patient received IV Toradol and then sumatriptan and headache did not improve. After patient received IV DHE migraine protocol after first dose her headache improved significantly. She rated her headache about a 4 out of 10 and she said her light sensitivity is a lot better and her nausea has resolved completely. Patient is stable for discharge home and was diagnosed with migraine headache and sinusitis. She was sent home with a prescription for Augmentin and told to follow-up with her PCP in the next week for reevaluation. Return to ED precautions given. Patient understood and agreed with plan. Lab Data Radiology Impressions Head CT 11/17/22 17:39 IMPRESSION: 1. No acute abnormality of the brain. 2. Pansinus disease with findings suspicious for acute sinusitis in the right frontal sinus and visualized right and left maxillary sinuses. Discharge Plan Discharge Patient Disposition: Home Clinical Impression: Migraine headache Qualifiers: Migraine type: without aura Status migrainosus presence: without status migrainosus Intractability: not intractable Qualified Code(s): G43.009 - Migraine without aura, not intractable, without status migrainosus Sinusitis Qualifiers: Sinusitis location: frontal Chronicity: acute Recurrence: non-recurrent Qualified Code(s): J01.10 - Acute frontal sinusitis, unspecified Condition: Stable Prescriptions: New Augmentin 500-125 mg tablet 1 tab PO BID 7 Days Qty: 14 0RF No Action insulin aspart U-100 [Novolog FlexPen U-100 Insulin] 100 unit/mL (3 mL) insulin pen 10 unit SUBCUT TID losartan 25 mg tablet 25 mg PO DAILY citalopram 40 mg tablet 40 mg PO DAILY pioglitazone [Actos] 30 mg tablet 30 mg PO DAILY Basaglar KwikPen U-100 Insulin 100 unit/mL (3 mL) insulin pen 80 unit SUBCUT BID divalproex 250 mg tablet extended release 24 hr PO dicyclomine 10 mg capsule 10 mg PO QID A-C-E-zinc ox-cupric ox-lutein 7,160 unit- 113 mg-0.5 mg tablet 2 tab PO BID cholecalciferol (vitamin D3) 1,250 mcg (50,000 unit) capsule PO hyoscyamine sulfate 0.125 mg tablet 0.125 mg PO QID Emgality Pen 120 mg/mL pen injector See Rx Instructions .ROUTE .COMPLEX Qty: 2 0RF Dose Instruction: 240 MG (2 ML) SUBCUTANEOUSLY ONCE LOADING DOSE FOR THE FIRST MONTH Rx Instructions: 240 MG (2 ML) SUBCUTANEOUSLY ONCE LOADING DOSE FOR THE FIRST MONTH Emgality Pen 120 mg/mL pen injector 120 mg SUBCUT ONCE Qty: 1 0RF capsaicin 0.025 % cream 1 applic topical DAILY Qty: 25 0RF Rx Instructions: Apply to affected area once daily. Do not wash area for at least 30 min after application gabapentin 300 mg capsule See Rx Instructions .ROUTE .COMPLEX Qty: 240 0RF Dose Instruction: TAKE 2 CAPSULES BY MOUTH 4 TIMES A DAY Rx Instructions: TAKE 2 CAPSULES BY MOUTH 4 TIMES A DAY atorvastatin 40 mg Tablet 40 mg PO DAILY diphenhydramine HCl 50 mg Capsule 50 mg PO BEDTIME PRN (Reason: Insomnia) hydrocodone-acetaminophen 5-325 mg tablet 1 tab PO Q8H PRN (Reason: pain (scale score 7-10)) Qty: 6 0RF Discharge Orders: Discharge ED (Routine); Ordered 11/17/22 Ordered By: Oc Hall Referrals: Enedina Brizuela [Primary Care Provider] - Discharge Diet: Regular Discharge Activity: Increase activity as tolerated Patient Instructions: Sinusitis (ED), Migraine Headache (ED) Activity Restrictions/Additional Instructions: Follow-up with medical provider as directed in the next 5 to 7 days for reevaluation. Take medications as prescribed. Return to the ER or your medical provider if condition worsens. Please read and understand discharge instructions. Thank you for choosing [facility] for your healthcare needs today. Please realize this is an emergency room and that we are providing you with a medical screening exam and this may not be complete and all inclusive of all the testing and or work up that you may need to determine your ailment or severity of your illness. It is very important that you follow up as instructed or that you return to the Emergency Department should you have concerns or if your condition changes or worsens in any way. Coding Level of Care Code ED Sales Representative [employer] for Velia Cantu
[2022-11-17] MEDS: ketorolac 30 mg/mL INJ IVP (17:49)
[2022-11-17] MEDS: promethazine 25 mg/mL SDV 1 mL IM (17:49)
[2022-11-17] MEDS: sodium chloride 0.9% 1,000 ML 999 ML IV (18:06)
[2022-11-17 18:36] VITALS: BP 142/117; PULSE 103; RESP 16; O2SAT 99
[2022-11-17] MEDS: SUMAtriptan 6 mg/0.5 mL SDV SUBCUT (19:06)
[2022-11-17] MEDS: dihydroergotamine 1 mg/mL Inj IVP (20:41)
[2022-11-17 20:43] VITALS: BP 138/67; PULSE 98; RESP 18; O2SAT 96
== END 2022-11-17 21:26 | disposition home or self-care (01) ==
PROVIDERS: Emergency Provider Physician Assistant; PCP Registered Nurse
DX: G43.009 Migraine without aura, not intractable, without status migrainosus (principal); J01.10 Acute frontal sinusitis, unspecified; Z79.4 Long term (current) use of insulin; F17.210 Nicotine dependence, cigarettes, uncomplicated; E11.9 Type 2 diabetes mellitus without complications; E78.5 Hyperlipidemia, unspecified; I10 Essential (primary) hypertension
CPT/HCPCS: 70450; 96361; 96372; 96374; 96375; 99284; J1110; J1885; J2550; J3030; J7030

== ENCOUNTER 2022-11-20 13:24 | Emergency (ER) | payer BC, SELFPAY ==
[2022-11-20] VITALS (7 sets, daily range): BP systolic 118–184; BP diastolic 76–132; PULSE 95–111; RESP 18–20; TEMP 36.4–36.8; O2SAT 96–98; BMI 40.6
[2022-11-20 17:57] LABS: Basophils # 0.1 10^3/uL (0.0-0.1); Basophils % 0.5 %; Eosinophils # 0.1 10^3/uL (0.0-0.8); Eosinophils % 0.6 %; Hemoglobin 13.7 g/dL (11.5-15.3); Lymphocytes # 3.6 10^3/uL (0.8-4.8); Lymphocytes % 23.6 %; Mean Corpuscular HGB Conc 31.1 g/dL (30.0-36.0); Mean Corpuscular Hemoglobin 27.7 pg (28.0-34.0); Mean Corpuscular Volume 89.1 fl (81-99); Mean Platelet Volume 9.5 fL (7.4-10.4); Monocytes # 1.1 10^3/uL (0.2-0.9); Neutrophils # 10.07 10^3/uL (1.8-7.7); Neutrophils % 66.8 %; Nucleated Red Blood Cells % 0 %; Platelet Count 445 10^3/cmm (130-400); Red Blood Count 4.94 10^6/uL (4.1-5.3); Red Cell Distribution Width 12.5 % (12.1-15.1); White Blood Count 15.1 10^3/uL (4.0-10.0)
[2022-11-20 18:12] LABS: HCG, Serum Qual Negative (Negative)
[2022-11-20 18:19] LABS: Alanine Aminotransferase 36 U/L (0-33); Albumin Level 4.4 g/dL (3.5-5.2); Alkaline Phosphatase 135 U/L (35-105); Anion Gap 16.3 (5-19); Aspartate Amino Transferase 25 U/L (0-32); Blood Urea Nitrogen 15 mg/dL (6-20); Calcium 9.2 mg/dL (8.5-10.5); Carbon Dioxide 29 mmol/L (22-29); Chloride 99 mmol/L (98-107); Globulin 4.1 g/dL (1.3-4.6); Glomerular Filtration Rate 136.6 mL/min (90-130); Glucose 158 mg/dL (65-115); Osmolality Calculated 296 mOsm/kg (285-295); Potassium 3.3 mmol/L (3.5-5.1); Sodium 141 mmol/L (136-145); Total Bilirubin 0.5 mg/dL (0.15-1.2); Total Protein 8.5 g/dL (6.6-8.7)
--- NOTE | 2022-11-20 18:21 | CTR_ITS ---
PROCEDURE INFORMATION: Exam: CT Orbits With Contrast Exam date and time: 11/20/2022 8:07 PM Age: 42 years old Clinical indication: Eye pain; Right; Additional info: Right eye pain TECHNIQUE: Imaging protocol: Computed tomography of the orbits with contrast. Radiation optimization: All CT scans at this facility use at least one of these dose optimization techniques: automated exposure control; mA and/or kV adjustment per patient size (includes targeted exams where dose is matched to clinical indication); or iterative reconstruction. Contrast material: OMNI 350; Contrast volume: 100 ml; Contrast route: INTRAVENOUS (IV); REPORTING DATA: Count of CT and Cardiac NM exams in prior 12 months: This patient has received [address] and 0 known cardiac nuclear medicine studies in the 12 months prior to the current study. COMPARISON: CT head wo con* [id number] 11/20/2022 8:00 PM RADIATION DOSE METRICS: Total DLP (mGy-cm): 375.68 FINDINGS: Paranasal sinuses: There is persistent pansinus opacification with air-fluid levels in the maxillary sinuses and frontal sinuses. Orbital cavities: Orbits are normal. Globes are unremarkable. Salivary glands: There is diffuse symmetric prominence of both parotid glands without focal mass is unchanged and may be related to diabetes. Correlate with history. Bones/joints: No acute fracture. Soft tissues: No significant facial soft tissue swelling. CT/CT orbit BI w con [id number] IMPRESSION: Acute pansinusitis changes again present. No other acute findings.
[2022-11-20] MEDS: fluorescein 1 mg Strip EYE-RIGHT (18:44)
[2022-11-20] MEDS: tetracaine 0.5% Op Soln 4 mL Btl 1 DROP EYE-RIGHT (18:44)
--- NOTE | 2022-11-20 18:44 | CTR_ITS ---
PROCEDURE INFORMATION: Exam: CT Head Without Contrast Exam date and time: 11/20/2022 8:00 PM Age: 42 years old Clinical indication: Pain; Headache; Migraine; Aura effect not specified; Additional info: REA TECHNIQUE: Imaging protocol: Computed tomography of the head without contrast. Radiation optimization: All CT scans at this facility use at least one of these dose optimization techniques: automated exposure control; mA and/or kV adjustment per patient size (includes targeted exams where dose is matched to clinical indication); or iterative reconstruction. REPORTING DATA: Count of CT and Cardiac NM exams in prior 12 months: This patient has received [address] and 0 known cardiac nuclear medicine studies in the 12 months prior to the current study. COMPARISON: CT head wo con* [id number] 11/17/2022 6:08 PM RADIATION DOSE METRICS: Total DLP (mGy-cm): 1153.28 FINDINGS: Brain: Normal. No hemorrhage. Unremarkable white matter. No mass effect. Cerebral ventricles: No ventriculomegaly. Paranasal sinuses: There is diffuse opacification of the paranasal sinuses with frothy secretions in the left maxillary sinus, air-fluid level in the right maxillary sinus and both frontal sinuses. Mastoid air cells: Visualized mastoid air cells are well aerated. Bones/joints: Unremarkable. No acute fracture. Soft tissues: Unremarkable. CT/CT head wo con* [id number] IMPRESSION: 1. No acute intracranial abnormality. 2. Persistent acute pansinusitis.
--- NOTE | 2022-11-20 18:45 | PC.NURSE ---
REPORT GIVEN TO SHELBI HAM.
--- NOTE | 2022-11-20 18:58 | ED_ITS ---
HPI - Headache General: Chief Complaint: Headache Stated Complaint: Migrane, congesation Time Seen by Provider: 11/20/22 17:58 Source: patient Mode of arrival: ambulatory Limitations: no limitations History of Present Illness: 42-year-old female states she has been having right eye pain along with a he adache over the last 2 days. States it is much worse with bright lights and loud sounds rates her head ache and 9 out of 10. States she fell like she is hit with a hammer in the right eye she felt like she had some swelling I do not appreciate any swelling or redness she has no conjunctivitis she has had no drainage denies any fevers denies any recent injuries. Associated symptoms: Deny chest pain, fever(s), nausea, rash or vomiting Review of Systems Const: Denies: fever(s), chills or body aches Eyes: Reports: eye discomfort ENMT: Denies: throat pain or dental pain Card: Denies: chest pain Resp: Denies: dyspnea GI: Denies: abdominal pain, nausea or vomiting : Denies: dysuria Musc: Denies: neck pain or back pain Skin/Breast: Denies: rash Neuro: Reports: headache(s) PFS ED PFSH: Medical History (Updated 11/20/22 @ 21:23 by New Coffey MD) Anemia Diabetes Endometriosis Family history of colon cancer Gastroparesis Hyperlipidemia Hypertension PCOS (polycystic ovarian syndrome) Surgical History H/O esophagogastroduodenoscopy (02/03/20) History of back surgery (~2017) History of hysterectomy (~2015) History of laparoscopic cholecystectomy (~2006) Status post colonoscopy (02/03/20) normal Family History Denies family history of Anesthesia complication Bleeding disorder Social History Smoking and tobacco status: current every day smoker (Half a pack-a full pack ) cigarettes Packs smoked per day: 1 Second hand smoke exposure: No Alcohol intake: never Desire information about alcohol rehabilitation?: No Substance/Drug Use: never Adopted: No Caregiver/support person: Yes Lives independently: Yes Household members: spouse Housing: House Marital status: service: No 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 Pets and animals: No Leisure activites: exercise Sexually active: Yes Do you think of yourself as: Straight/Heterosexual Current gender identity: Female Akosua/Nondenominational: Adventism Physical Exam Const: COMMON NORMALS: no acute distress, patient oriented x3 and healthy appearing HENMT: COMMON NORMALS: normocephalic and atraumatic HEAD & SCALP: nor mocephalic and atraumatic Eye: COMMON NORMALS: Equal, round and reactive pupils present, EOMs intact bilaterally and conjunctivae normal GENERAL EYE: appearance normal, both eyes and all related structures and normal light reflex CONJUNCTIVA: Yes conjunctivae normal SCLERA: sclerae normal PUPIL: Yes Equal, round and reactive pupils present DIRECT OPHTHALMOSCOPY: Yes normal light reflex OTHER: Small corneal abrasion on right eye under fluorescein tetracaine did not take any of her headache pain away. Intraocular pressure was 17 mmHg Neck/C-Spine: COMMON NORMALS: full ROM and supple Chest: COMMONS NORMALS: normal inspection of the chest and normal palpation of entire chest wall Resp: COMMON NORMALS: normal respiratory effort, No retractions, No use of accessory muscles and clear to auscultation bilaterally AUSCULTATION: clear to auscultation bilaterally Cardio: COMMON NORMALS: regular rate, regular rhythm and No murmurs present (Cardio) RATE: regular rate RHYTHM: regular rhythm GI: COMMON NORMALS: Normal to inspection, nondistended, normoactive bowel sounds present, Soft to palpation, non-tender and no masses PALPATION: Yes Soft to palpation Extremity: COMMON NORMALS: normal to inspection and full ROM Neuro: COMMON NORMALS: patient oriented x3, moves all extremities and no focal motor deficits Psych: COMMON NORMALS: mental status grossly normal, Normal thought process present and cooperative THOUGHT PROCESS: Normal thought process present Skin: COMMON NORMALS: no rashes or lesions noted and no wounds GENERAL SKIN EXAM: no rashes or lesions noted Course Vital Signs: Vital signs: Vital Signs Temperature 98.3 F 11/20/22 17:28 Pulse Rate 102 H 11/20/22 22:06 Respiratory Rate 18 11/20/22 22:06 Blood Pressure 118/76 11/20/22 22:06 Pulse Oximetry 96 11/20/22 22:06 Oxygen Delivery Me thod Room Air 11/20/22 21:10 MDM - Headache Medical Decision Making Patient presents here with a headache is likely migraine headache she does have a slight corneal abrasion on exam head CT and orbital CT are normal she does have a sinusitis her intraocular pressures here are normal we will start her on pain meds along with erythromycin ointment and Augmentin for her sinusitis she is to follow-up with her neurologist Dr. James for migraines return if worsening she has no signs of subarachnoid hemorrhage or meningitis. Lab Data 11/20/22 17:24 11/20/22 17:[address] 11/20/22 18:21 IMPRESSION: Acute pansinusitis changes again present. No other acute findings. Head CT 11/20/22 18:44 IMPRESSION: 1. No acute intracranial abnormality. 2. Persistent acute pansinusitis. Laboratory Results WBC 15.1 10^3/uL (4.0-10.0) H 11/20/22 17:24 RBC 4.94 10^6/uL (4.1-5.3) 11/20/22 17:24 Hgb 13.7 g/dL (11.5-15.3) 11/20/22 17:24 Hct 44.0 % (37.0-47.0) 11/20/22 17: MCV 89.1 fl (81-99) 11/20/22 17:24 MCH 27.7 pg (28.0-34.0) L 11/20/22 17:24 MCHC 31.1 g/dL (30.0-36.0) 11/20/22 17: RDW 12.5 % (12.1-15.1) 11/20/22 17: Plt Count 445 10^3/cmm (130-400) H 11/20/22 17:24 MPV 9.5 fL (7.4-10.4) 11/20/22 17: Neut % (Auto) 66.8 % 11/20/22 17: Lymph % (Auto) 23.6 % 11/20/22 17:24 [place] % (Auto) 7.0 % 11/20/22 17: Eos % (Auto) 0.6 % 11/20/22 17: Baso % (Auto) 0.5 % 11/20/22 17: Neut # (Auto) 10.07 10^3/uL (1.8-7.7) H 11/20/22 17:24 Lymph # (Auto) 3.6 10^3/uL (0.8-4.8) 11/20/22 17:24 [place] # (Auto) 1.1 10^3/uL (0.2-0.9) H 11/20/22 17:24 Eos # (Auto) 0.1 10^3/uL (0.0-0.8) 11/20/22 17:24 Baso # (Auto) 0.1 10^3/uL (0.0-0.1) 11/20/22 17:24 Nucleated RBC % (auto) 0 % 11/20/22 17:24 Nucleated RBCs # 0.0 /100WBC 11/20/22 17:24 Sodium 141 mmol/L (136-145) 11/20/22 17:24 Potassium 3.3 mmol/L (3.5-5.1) L 11/20/22 17:24 Chloride 99 mmol/L (98-107) 11/20/22 17:24 Carbon Dioxide 29 mmol/L (22-29) 11/20/22 17:24 Anion Gap 16.3 (5-19) 11/20/22 17:24 BUN 15 mg/dL (6-20) 11/20/22 17:24 Creatinine 0.5 mg/dL (0.5-0.9) 11/20/22 17:24 GFR Calculation 136.6 mL/min (90-130) H 11/20/22 17:24 Glucose 158 mg/dL (65-115) H 11/20/22 17:24 Calculated Osmolality 296 mOsm/kg (285-295) H 11/20/22 17:24 Calcium 9.2 mg/dL (8.5-10.5) 11/20/22 17:24 Total Bilirubin 0.5 mg/dL (0.15-1.2) 11/20/22 17:24 AST 25 U/L (0-32) 11/20/22 17:24 ALT 36 U/L (0-33) H 11/20/22 17:24 Alkaline Phosphatase 135 U/L (35-105) H 11/20/22 17:24 Total Protein 8.5 g/dL (6.6-8.7) 11/20/22 17:24 Albumin 4.4 g/dL (3.5-5.2) 11/20/22 17:24 Globulin 4.1 g/dL (1.3-4.6) 11/20/22 17:24 HCG, Qual Negative (Negative) 11/20/22 17:24 Discharge Plan Discharge Patient Disposition: Home Clinical Impression: Headache, Sinusitis, Abrasion, corneal Condition: Stable Prescriptions: New hydrocodone-acetaminophen 5-325 mg tablet 1 tab PO Q6H PRN (Reason: pain) Qty: 14 0RF ondansetron 4 mg tablet,disintegrating 4 mg PO Q6H PRN (Reason: nausea and vomiting) Qty: 14 0RF Augmentin 500-125 mg tablet 1 tab PO BID Qty: 14 0RF erythromycin 5 mg/gram (0.5 %) ointment 1 applic ophthalmic (eye) Q6H 5 Days Qty: 3.5 0RF No Action insulin aspart U-100 [Novolog FlexPen U-100 Insulin] 100 unit/mL (3 mL) insulin pen 10 unit SUBCUT TID losartan 25 mg tablet 25 mg PO DAILY citalopram 40 mg tablet 40 mg PO DAILY pioglitazone [Actos] 30 mg tablet 30 mg PO DAILY Basaglar KwikPen U-100 Insulin 100 unit/mL (3 mL) insulin pen 80 unit SUBCUT BID divalproex 250 mg tablet extended release 24 hr PO dicyclomine 10 mg capsule 10 mg PO QID A-C-[id number]-zinc ox-cupric ox-lutein 7,160 unit- 113 mg-0.5 mg tablet 2 tab PO BID cholecalciferol (vitamin D3) 1,250 mcg (50,000 unit) capsule PO hyoscyamine sulfate 0.125 mg tablet 0.125 mg PO QID Emgality Pen 120 mg/mL pen injector See Rx Instructions .ROUTE .COMPLEX Qty: 2 0RF Dose Instruction: 240 MG (2 ML) SUBCUTANEOUSLY ONCE LOADING DOSE FOR THE FIRST MONTH Rx Instructions: 240 MG (2 ML) SUBCUTANEOUSLY ONCE LOADING DOSE FOR THE FIRST MONTH Emgality Pen 120 mg/mL pen injector 120 mg SUBCUT ONCE Qty: 1 0RF capsaicin 0.025 % cream 1 applic topical DAILY Qty: 25 0RF Rx Instructions: Apply to affected area once daily. Do not wash area for at least 30 min after application gabapentin 300 mg capsule See Rx Instructions .ROUTE .COMPLEX Qty: 240 0RF Dose Instruction: TAKE 2 CAPSULES BY MOUTH 4 TIMES A DAY Rx Instructions: TAKE 2 CAPSULES BY MOUTH 4 TIMES A DAY atorvastatin 40 mg Tablet 40 mg PO DAILY diphenhydramine HCl 50 mg Capsule 50 mg PO BEDTIME PRN (Reason: Insomnia) hydrocodone-acetaminophen 5-325 mg tablet 1 tab PO Q8H PRN (Reason: pain (scale score 7-10)) Qty: 6 0RF Augmentin 500-125 mg tablet 1 tab PO BID 7 Days Qty: 14 0RF Discharge Orders: Discharge ED (Routine); Ordered 11/20/22 Ordered By: New Coffey Referrals: Enedina Brizueal [Primary Care Provider] - Discharge Diet: Advance as tolerated Discharge Activity: Resume usual activity Patient Instructions: Corneal Abrasion (ED), Acute Headache (ED) Coding Level of Care Code ED Avionics Technician for Velia Cantu
[2022-11-20] MEDS: metoclopramide 5 mg/mL SDV 2 mL 10 MG IVP (19:18)
[2022-11-20] MEDS: diphenhydrAMINE 50 mg/mL SDV 1mL IVP (19:20)
[2022-11-20] MEDS: iohexol 350 mg/mL 500 mL Btl (per mL) IV (20:02)
[2022-11-20] MEDS: HYDROmorphone 1 mg/mL INJ 1 mL IVP (21:09)
== END 2022-11-20 22:01 | disposition home or self-care (01) ==
PROVIDERS: Emergency Medicine; Emergency Provider Emergency Medicine; PCP Registered Nurse
DX: R51.9 Headache, unspecified (principal); J32.9 Chronic sinusitis, unspecified; S05.01XA Injury of conjunctiva and corneal abrasion without foreign body, right eye, initial encounter; Z79.4 Long term (current) use of insulin; E11.9 Type 2 diabetes mellitus without complications; E78.5 Hyperlipidemia, unspecified; I10 Essential (primary) hypertension; F17.210 Nicotine dependence, cigarettes, uncomplicated; X58.XXXA Exposure to other specified factors, initial encounter
CPT/HCPCS: 36415; 70450; 70481; 80053; 84703; 85025; 96374; 96375; 99285; J1170; J1200; J2765; Q9967

== ENCOUNTER 2022-11-22 14:45 | Emergency (ER) | payer BC, SELFPAY ==
[2022-11-22 14:56] VITALS: BP 147/108; PULSE 120; RESP 16; TEMP 36.6; O2SAT 97; BMI 39.3
--- NOTE | 2022-11-22 15:45 | ED_ITS ---
HPI - General Adult General: Chief complaint: General Medical Stated complaint: Jacob sent for infusions Time Seen by Provider: 11/22/22 15:35 Source: patient Mode of arrival: ambulatory History of Present Illness: 42-year-old female presents emergency room complaining of headache. She had it for 1 week. She is given Toradol and Phenergan Dr. James's office. She did not get any improvement Dr. James wanted to have a DHE protocol. She was sent to the emergency room for DHE treatments. Onset (ago): week(s) (1) Location: head Severity: severe Pain Consistency: constant Relieving factors: none Exacerbating factors: none Associated symptoms: Deny chest pain, confusion, cough, diaphoresis, decreased appetite, dyspnea, fevers/chills, headache(s), malaise, nausea, rash, palpitations, seizures, short of breath, syncope, vomiting or weakness Treatments prior to arrival: none Review of Systems Const: Denies: fever(s), chills, fatigue, malaise or diaphoresis Card: Denies: chest pain, palpitations or syncope Resp: Denies: dyspnea GI: Denies: abdominal pain, nausea or vomiting : Denies: flank pain, dysuria, urinary frequency or urinary urgency Skin/Breast: Denies: rash or pruritus Neuro: Denies: headache(s) or confusion [facility] ED PFSH: Medical History Anemia Diabetes Endometriosis Family history of colon cancer Gastroparesis Hyperlipidemia Hypertension PCOS (polycystic ovarian syndrome) Surgical History H/O esophagogastroduodenoscopy (02/03/20) History of back surgery (~2018) History of hysterectomy (~2016) History of laparoscopic cholecystectomy (~2006) Status post colonoscopy (02/03/20) normal Family History Denies family history of Anesthesia complication Bleeding disorder Social History Smoking and tobacco status: current every day smoker (Half a pack-a full pack ) cigarettes Packs smoked per day: 1 Second hand smoke exposure: No Alcohol intake: never Desire information about alcohol rehabilitation?: No Substance/Drug Use: never Adopted: No Caregiver/support person: Yes Lives independently: Yes Household members: spouse Housing: House Marital status: service: No 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 Pets and animals: No Leisure activites: exercise Sexually active: Yes Do you think of yourself as: Straight/Heterosexual Current gender identity: Female Akosua/Tenriism: Anabaptism Physical Exam Const: GENERAL APPEARANCE: cooperative and comfortable ORIENTA TION/CONSCIOUSNESS: Yes awake, Yes oriented to person, Yes oriented to place and Yes oriented to time HENMT: COMMON NORMALS: normocephalic, atraumatic and hearing grossly normal bilaterally HEAD & SCALP: normocephalic and atraumatic Resp: COMMON NORMALS: normal respiratory effort, No retractions, No use of accessory muscles and clear to auscultation bilaterally AUSCULTATION: clear to auscultation bilaterally Cardio: COMMON NORMALS: regular rate, regular rhythm and No murmurs present (Cardio) RATE: regular rate RHYTHM: regular rhythm GI: COMMON NORMALS: Soft to palpation and No hepatosplenomegaly present AUSCULTATION: Yes normoactive bowel sounds PALPATION: Yes Soft to palpation, No Tenderness to palpation present (GI), No Guarding due to palpation present (GI) and Yes No hepatosplenomegaly present Extremity: COMMON NORMALS: normal to inspection, capillary refill normal, no clubbing, cyanosis or edema, no calf tenderness and no pedal edema Neuro: SENSORIUM/ORIENTATION: Yes oriented to person, Yes oriented to place and Yes oriented to time Skin: COMMON NORMALS: no rashes or lesions noted GENERAL SKIN EXAM: no rashes or lesions noted Course Vital Signs: Vital signs: Vital Signs Temperature 97.9 F 11/22/22 14:56 Pulse Rate 92 11/22/22 17:00 Respiratory Rate 15 11/22/22 17:00 Blood Pressure 131/95 11/22/22 17:00 Pulse Oximetry 92 11/22/22 17:00 Oxygen Delivery Me thod Room Air 11/22/22 17:00 MDM - General Adult Medical Decision Making Patient treated with the DHE protocol for migraine she had significant improvement she still has some nausea but is improving after getting a dose of Phenergan. She would prefer to go home at this point she is going to continue to follow-up with Dr. James for further prophylactic treatments for her recurrent migraines. Medical Records I reviewed the patient's medical records. Lab Data I reviewed the patient's lab results. Discharge Plan Discharge Patient Disposition: Home Clinical Impression: Migraine headache Condition: Stable Prescriptions: No Action insulin aspart U-100 [Novolog FlexPen U-100 Insulin] 100 unit/mL (3 mL) insulin pen 10 unit SUBCUT TID losartan 25 mg tablet 25 mg PO DAILY citalopram 40 mg tablet 40 mg PO DAILY pioglitazone [Actos] 30 mg tablet 30 mg PO DAILY Basaglar KwikPen U-100 Insulin 100 unit/mL (3 mL) insulin pen 80 unit SUBCUT BID divalproex 250 mg tablet extended release 24 hr PO dicyclomine 10 mg capsule 10 mg PO QID A-C-E-zinc ox-cupric ox-lutein 7,160 unit- 113 mg-0.5 mg tablet 2 tab PO BID cholecalciferol (vitamin D3) 1,250 mcg (50,000 unit) capsule PO hyoscyamine sulfate 0.125 mg tablet 0.125 mg PO QID Emgality Pen 120 mg/mL pen injector See Rx Instructions .ROUTE .COMPLEX Qty: 2 0RF Dose Instruction: 240 MG (2 ML) SUBCUTANEOUSLY ONCE LOADING DOSE FOR THE FIRST MONTH Rx Instructions: 240 MG (2 ML) SUBCUTANEOUSLY ONCE LOADING DOSE FOR THE FIRST MONTH Emgality Pen 120 mg/mL pen injector 120 mg SUBCUT ONCE Qty: 1 0RF capsaicin 0.025 % cream 1 applic topical DAILY Qty: 25 0RF Rx Instructions: Apply to affected area once daily. Do not wash area for at least 30 min after application gabapentin 300 mg capsule See Rx Instructions .ROUTE .COMPLEX Qty: 240 0RF Dose Instruction: TAKE 2 CAPSULES BY MOUTH 4 TIMES A DAY Rx Instructions: TAKE 2 CAPSULES BY MOUTH 4 TIMES A DAY atorvastatin 40 mg Tablet 40 mg PO DAILY diphenhydramine HCl 50 mg Capsule 50 mg PO BEDTIME PRN (Reason: Insomnia) hydrocodone-acetaminophen 5-325 mg tablet 1 tab PO Q8H PRN (Reason: pain (scale score 7-10)) Qty: 6 0RF Augmentin 500-125 mg tablet 1 tab PO BID 7 Days Qty: 14 0RF hydrocodone-acetaminophen 5-325 mg tablet 1 tab PO Q6H PRN (Reason: pain) Qty: 14 0RF ondansetron 4 mg tablet,disintegrating 4 mg PO Q6H PRN (Reason: nausea and vomiting) Qty: 14 0RF Augmentin 500-125 mg tablet 1 tab PO BID Qty: 14 0RF erythromycin 5 mg/gram (0.5 %) ointment 1 applic ophthalmic (eye) Q6H 5 Days Qty: 3.5 0RF Discharge Orders: Discharge ED (Routine); Ordered 11/22/22 Ordered By: Osman Rios Referrals: Stacey James MD [Primary Care Provider] - Discharge Diet: Usual diet Discharge Activity: Increase activity as tolerated Patient Instructions: Headache - Migraine (Adult), Opioid Safety, Pain Management Activity Restrictions/Additional Instructions: You are seen today for migraine headache. The DHE protocol used in the emergency room relieve the headache. I would recommend that you follow-up with Dr. James for further prophylactic therapies to prevent headaches from recurring in the future. Coding Level of Care Code ED Newspaper Peddler for Velia Cantu
[2022-11-22] MEDS: diphenhydrAMINE 50 mg/mL SDV 1mL IVP (15:55)
[2022-11-22] MEDS: dihydroergotamine 1 mg/mL Inj IVP ×3 (15:55→17:12)
[2022-11-22 16:00] VITALS: BP 132/93; PULSE 96; RESP 18; O2SAT 100
[2022-11-22 16:30] VITALS: BP 131/95; PULSE 90; RESP 18; O2SAT 95
[2022-11-22 17:00] VITALS: BP 131/95; PULSE 92; RESP 15; O2SAT 92
[2022-11-22] MEDS: promethazine 25 mg/mL SDV 1 mL IM (17:10)
[2022-11-22 17:40] VITALS: BP 129/75; PULSE 85; RESP 16; O2SAT 92
[2022-11-22 17:59] VITALS: BP 129/75; PULSE 85; RESP 16; O2SAT 92
== END 2022-11-22 18:01 | disposition home or self-care (01) ==
PROVIDERS: Emergency Provider Family Medicine; PCP Specialist
DX: G43.909 Migraine, unspecified, not intractable, without status migrainosus (principal)
CPT/HCPCS: 96372; 96374; 96375; 99284; J1110; J1200; J2550

== ENCOUNTER 2022-11-23 11:07 | Emergency (ER) | payer BC, SELFPAY ==
[2022-11-23 11:17] VITALS: BP 158/96; PULSE 98; RESP 15; TEMP 36.7; O2SAT 95; BMI 39.3
[2022-11-23] MEDS: promethazine 25 mg/mL SDV 1 mL IM (12:09)
[2022-11-23] MEDS: ketorolac 30 mg/mL INJ IVP (12:09)
--- NOTE | 2022-11-23 12:24 | ED_ITS ---
HPI - General Adult General: Chief complaint: General Medical Stated complaint: sent for infusion/headache Time Seen by Provider: 11/23/22 11:14 Source: patient Mode of arrival: ambulatory History of Present Illness: 42-year-old female presents emergency room with complaint of migraine. We seen patient yesterday did a DHE protocol and she seemed to improve quite a bit she was discharged home to follow-up with Dr. James who had directed her to the emergency room. Headache resumed again this morning frontal headache throbbing in nature with photophobia and autophobia is similar to what she has had yesterday and in the past. Onset (ago): hour(s) Location: head Severity: severe Pain Consistency: constant Relieving factors: none Exacerbating factors: other (Light and sound) Associated symptoms: Reports headache(s); Deny chest pain, confusion, cough, diaphoresis, decreased appetite, dyspnea, fevers/chills, malaise, nausea, palpitations, seizures, short of breath, syncope, vomiting or weakness Treatments prior to arrival: none Review of Systems Const: Denies: fever(s), chills, fatigue, malaise or diaphoresis Card: Denies: chest pain, palpitations or syncope Resp: Denies: dyspnea GI: Denies: nausea or vomiting : Denies: dysuria, urinary frequency or urinary urgency Neuro: Reports: headache(s); Denies: confusion PFSH ED PFSH: Medical History Anemia Diabetes Endometriosis Family history of colon cancer Gastroparesis Hyperlipidemia Hypertension PCOS (polycystic ovarian syndrome) Surgical History H/O esophagogastroduodenoscopy (02/03/20) History of back surgery (~2018) History of hysterectomy (~2015) History of laparoscopic cholecystectomy (~2006) Status post colonoscopy (02/03/20) normal Family History Denies family history of Anesthesia complication Bleeding disorder Social History Smoking and tobacco status: current every day smoker (Half a pack-a full pack ) cigarettes Packs smoked per day: 1 Second hand smoke exposure: No Alcohol intake: never Desire information about alcohol rehabilitation?: No Substance/Drug Use: never Adopted: No Caregiver/support person: Yes Lives independently: Yes Household members: spouse Housing: House Marital status: service: No 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 Pets and animals: No Leisure activites: exercise Sexually active: Yes Do you think of yourself as: Straight/Heterosexual Current gender identity: Female [place]m: Congregational Physical Exam Const: GENERAL APPEARANCE: cooperative and comfortable ORIENTATION/CONSCIOUSNESS: Yes awake, Yes oriented to person, Yes oriented to place and Yes oriented to time HENMT: COMMON NORMALS: normocephalic, atraumatic and hearing grossly normal bilaterally HEAD & SCALP: normocephalic and atraumatic Resp: COMMON NORMALS: normal respiratory effort, No retractions, No use of accessory muscles and clear to auscultation bilaterally AUSCULTATION: clear to auscultation bilaterally Cardio: COMMON NORMALS: regular rate, regular rhythm and No murmurs present (Cardio) RATE: regular rate RHYTHM: regular rhythm GI: COMMON NORMALS: Soft to palpation and No hepatosplenomegaly present AUSCULTATION: Yes normoactive bowel sounds PALPATION: Yes Soft to palpation, No Tenderness to palpation present (GI), No Guarding due to palpation present (GI) and Yes No hepatosplenomegaly present Extremity: COMMON NORMALS: normal to inspection, capillary refill normal, no clubbing, cyanosis or edema, no calf tenderness and no pedal edema Neuro: SENSORIUM/ORIENTATION: Yes oriented to person, Yes oriented to place and Yes oriented to time Skin: COMMON NORMALS: no rashes or lesions noted GENERAL SKIN EXAM: no rashes or lesions noted Course Vital Signs: Vital signs: Vital Signs Temperature 98.1 F 11/23/22 11:17 Pulse Rate 87 11/23/22 13:54 Respiratory Rate 18 11/23/22 13:54 Blood Pressure 133/88 11/23/22 13:54 Pulse Oximetry 97 11/23/22 13:54 Oxygen Delivery Me thod Room Air 11/23/22 11:17 MDM - General Adult Medical Decision Making Full resolution of the headache with the Depacon. We will discharge her home on topiramate and have her follow-up with Dr. James's office for further management of her migraine headaches. Medical Records I reviewed the patient's medical records. Lab Data I reviewed the patient's lab results. 11/23/22 12:03 11/23/22 12:03 Laboratory Results WBC 7.7 10^3/uL (4.0-10.0) 11/23/22 12:03 RBC 4.71 10^6/uL (4.1-5.3) 11/23/22 12:03 Hgb 13.2 g/dL (11.5-15.3) 11/23/22 12:03 Hct 41.7 % (37.0-47.0) 11/23/22 12:03 MCV 88.5 fl (81-99) 11/23/22 12:03 MCH 28.0 pg (28.0-34.0) 11/23/22 12:03 MCHC 31.7 g/dL (30.0-36.0) 11/23/22 12:03 RDW 12.4 % (12.1-15.1) 11/23/22 12:03 Plt Count 368 10^3/cmm (130-400) 11/23/22 12:03 MPV 9.4 fL (7.4-10.4) 11/23/22 12:03 Neut % (Auto) 63.5 % 11/23/22 12:03 Lymph % (Auto) 24.3 % 11/23/22 12:03 [place] % (Auto) 7.0 % 11/23/22 12:03 Eos % (Auto) 2.5 % 11/23/22 12:03 Baso % (Auto) 0.9 % 11/23/22 12:03 Neut # (Auto) 4.88 10^3/uL (1.8-7.7) 11/23/22 12:03 Lymph # (Auto) 1.9 10^3/uL (0.8-4.8) 11/23/22 12:03 [place] # (Auto) 0.5 10^3/uL (0.2-0.9) 11/23/22 12:03 Eos # (Auto) 0.2 10^3/uL (0.0-0.8) 11/23/22 12:03 Baso # (Auto) 0.1 10^3/uL (0.0-0.1) 11/23/22 12:03 Nucleated RBC % (auto) 0 % 11/23/22 12:03 Nucleated RBCs # 0.0 /100WBC 11/23/22 12:03 Sodium 138 mmol/L (136-145) 11/23/22 12:03 Potassium 3.9 mmol/L (3.5-5.1) 11/23/22 12:03 Chloride 100 mmol/L (98-107) 11/23/22 12:03 Carbon Dioxide 27 mmol/L (22-29) 11/23/22 12:03 Anion Gap 14.9 (5-19) 11/23/22 12:03 BUN 11 mg/dL (6-20) 11/23/22 12:03 Creatinine 0.5 mg/dL (0.5-0.9) 11/23/22 12:03 GFR Calculation 136.6 mL/min (90-130) H 11/23/22 12:03 Glucose 177 mg/dL (65-115) H 11/23/22 12:03 Calculated Osmolality 290 mOsm/kg (285-295) 11/23/22 12:03 Calcium 9.3 mg/dL (8.5-10.5) 11/23/22 12:03 Total Bilirubin 0.6 mg/dL (0.15-1.2) 11/23/22 12:03 AST 40 U/L (0-32) H 11/23/22 12:03 ALT 45 U/L (0-33) H 11/23/22 12:03 Alkaline Phosphatase 121 U/L (35-105) H 11/23/22 12:03 Total Protein 7.9 g/dL (6.6-8.7) 11/23/22 12:03 Albumin 3.9 g/dL (3.5-5.2) 11/23/22 12:03 Globulin 4.0 g/dL (1.3-4.6) 11/23/22 12:03 Discharge Plan Discharge Patient Disposition: Home Clinical Impression: Migraine headache Condition: Stable Prescriptions: New Topamax 50 mg tablet 50 mg PO .QHS Qty: 30 0RF No Action insulin aspart U-100 [Novolog FlexPen U-100 Insulin] 100 unit/mL (3 mL) insulin pen 10 unit SUBCUT TID losartan 25 mg tablet 25 mg PO DAILY citalopram 40 mg tablet 40 mg PO DAILY pioglitazone [Actos] 30 mg tablet 30 mg PO DAILY Levar Campa U-100 Insulin 100 unit/mL (3 mL) insulin pen 80 unit SUBCUT BID divalproex 250 mg tablet extended release 24 hr PO dicyclomine 10 mg capsule 10 mg PO QID A-C-[id number]-zinc ox-cupric ox-lutein 7,160 unit- 113 mg-0.5 mg tablet 2 tab PO BID cholecalciferol (vitamin D3) 1,250 mcg (50,000 unit) capsule PO hyoscyamine sulfate 0.125 mg tablet 0.125 mg PO QID Emgality Pen 120 mg/mL pen injector See Rx Instructions .ROUTE .COMPLEX Qty: 2 0RF Dose Instruction: 240 MG (2 ML) SUBCUTANEOUSLY ONCE LOADING DOSE FOR THE FIRST MONTH Rx Instructions: 240 MG (2 ML) SUBCUTANEOUSLY ONCE LOADING DOSE FOR THE FIRST MONTH Emgality Pen 120 mg/mL pen injector 120 mg SUBCUT ONCE Qty: 1 0RF capsaicin 0.025 % cream 1 applic topical DAILY Qty: 25 0RF Rx Instructions: Apply to affected area once daily. Do not wash area for at least 30 min after application gabapentin 300 mg capsule See Rx Instructions .ROUTE .COMPLEX Qty: 240 0RF Dose Instruction: TAKE 2 CAPSULES BY MOUTH 4 TIMES A DAY Rx Instructions: TAKE 2 CAPSULES BY MOUTH 4 TIMES A DAY atorvastatin 40 mg Tablet 40 mg PO DAILY diphenhydramine HCl 50 mg Capsule 50 mg PO BEDTIME PRN (Reason: Insomnia) hydrocodone-acetaminophen 5-325 mg tablet 1 tab PO Q8H PRN (Reason: pain (scale score 7-10)) Qty: 6 0RF Augmentin 500-125 mg tablet 1 tab PO BID 7 Days Qty: 14 0RF hydrocodone-acetaminophen 5-325 mg tablet 1 tab PO Q6H PRN (Reason: pain) Qty: 14 0RF ondansetron 4 mg tablet,disintegrating 4 mg PO Q6H PRN (Reason: nausea and vomiting) Qty: 14 0RF Augmentin 500-125 mg tablet 1 tab PO BID Qty: 14 0RF erythromycin 5 mg/gram (0.5 %) ointment 1 applic ophthalmic (eye) Q6H 5 Days Qty: 3.5 0RF Discharge Orders: Discharge ED (Routine); Ordered 11/23/22 Ordered By: Osman Rios Referrals: Stacey James MD [Primary Care Provider] - Discharge Diet: Usual diet Discharge Activity: Increase activity as tolerated Patient Instructions: Opioid Safety, Pain Management Activity Restrictions/Additional Instructions: You are seen today for migraine. You responded very well to the IV Depacon that was given. Recommend that you start on 50 mg nightly of topiramate as prophylaxis for headache and follow-up with Dr. James for further medication adjustments and recommendations. Coding Level of Care Code ED Supervisor In Charge for Velia Cantu
[2022-11-23] MEDS: valproic acid inj 500 MG in sodium chloride 0.9% 50 ML 55 MG IV (12:36)
[2022-11-23 12:42] LABS: Basophils # 0.1 10^3/uL (0.0-0.1); Basophils % 0.9 %; Eosinophils # 0.2 10^3/uL (0.0-0.8); Eosinophils % 2.5 %; Hematocrit 41.7 % (37.0-47.0); Hemoglobin 13.2 g/dL (11.5-15.3); Lymphocytes # 1.9 10^3/uL (0.8-4.8); Lymphocytes % 24.3 %; Mean Corpuscular HGB Conc 31.7 g/dL (30.0-36.0); Mean Corpuscular Volume 88.5 fl (81-99); Mean Platelet Volume 9.4 fL (7.4-10.4); Monocytes # 0.5 10^3/uL (0.2-0.9); Neutrophils # 4.88 10^3/uL (1.8-7.7); Neutrophils % 63.5 %; Nucleated Red Blood Cells % 0 %; Platelet Count 368 10^3/cmm (130-400); Red Blood Count 4.71 10^6/uL (4.1-5.3); Red Cell Distribution Width 12.4 % (12.1-15.1); White Blood Count 7.7 10^3/uL (4.0-10.0)
[2022-11-23 12:56] LABS: Alanine Aminotransferase 45 U/L (0-33); Albumin Level 3.9 g/dL (3.5-5.2); Alkaline Phosphatase 121 U/L (35-105); Blood Urea Nitrogen 11 mg/dL (6-20); Calcium 9.3 mg/dL (8.5-10.5); Carbon Dioxide 27 mmol/L (22-29); Chloride 100 mmol/L (98-107); Glomerular Filtration Rate 136.6 mL/min (90-130); Glucose 177 mg/dL (65-115); Osmolality Calculated 290 mOsm/kg (285-295); Sodium 138 mmol/L (136-145); Total Bilirubin 0.6 mg/dL (0.15-1.2); Total Protein 7.9 g/dL (6.6-8.7)
[2022-11-23 13:00] VITALS: BP 148/76; PULSE 76; RESP 16; O2SAT 97
[2022-11-23 13:02] LABS: Anion Gap 14.9 (5-19); Aspartate Amino Transferase 40 U/L (0-32); Potassium 3.9 mmol/L (3.5-5.1)
[2022-11-23 13:54] VITALS: BP 133/88; PULSE 87; RESP 18; O2SAT 97
== END 2022-11-23 13:56 | disposition home or self-care (01) ==
PROVIDERS: Emergency Provider Family Medicine; PCP Specialist
DX: G43.909 Migraine, unspecified, not intractable, without status migrainosus (principal); Z79.4 Long term (current) use of insulin; F17.210 Nicotine dependence, cigarettes, uncomplicated; E11.9 Type 2 diabetes mellitus without complications; E78.5 Hyperlipidemia, unspecified; I10 Essential (primary) hypertension
CPT/HCPCS: 80053; 85025; 96365; 96372; 96375; 99284; J1885; J2550; J3490

== ENCOUNTER 2022-11-24 14:13 | Emergency (ER) | payer BC, SELFPAY ==
[2022-11-24 14:22] VITALS: BP 145/113; PULSE 109; RESP 18; TEMP 36.9; O2SAT 97; BMI 40.6
--- NOTE | 2022-11-24 16:39 | CTR_ITS ---
PROCEDURE INFORMATION: Exam: CTA Head With Contrast, Arteriography Exam date and time: 11/24/2022 5:14 PM Age: 42 years old Clinical indication: Pain; Headache; Additional info: Persistant migraine TECHNIQUE: Imaging protocol: Computed tomographic angiography of the head with contrast. Exam focused on the arteries. 3D rendering (Not supervised by radiologist): MIP and/or 3D reconstructed images were created by the technologist. Radiation optimization: All CT scans at this facility use at least one of these dose optimization techniques: automated exposure control; mA and/or kV adjustment per patient size (includes targeted exams where dose is matched to clinical indication); or iterative reconstruction. Contrast material: OMNI 350; Contrast volume: 100 ml; Contrast route: INTRAVENOUS (IV); REPORTING DATA: Count of CT and Cardiac NM exams in prior 12 months: This patient has received 3 known CTs and 0 known cardiac nuclear medicine studies in the 12 months prior to the current study. COMPARISON: CT head wo con* [id number] 11/20/2022 8:00 PM RADIATION DOSE METRICS: Total DLP (mGy-cm): 1185.18 FINDINGS: ANTERIOR CIRCULATION: Right internal carotid artery: Intracranial segment is patent with no significant stenosis. No aneurysm. Right middle cerebral artery: No occlusion or significant stenosis. No aneurysm. Right anterior cerebral artery: No occlusion or significant stenosis. No aneurysm. Left internal carotid artery: Intracranial segment is patent with no significant stenosis. No aneurysm. Left middle cerebral artery: No occlusion or significant stenosis. No aneurysm. Left anterior cerebral artery: No occlusion or significant stenosis. No aneurysm. POSTERIOR CIRCULATION: Right vertebral artery: No occlusion or significant stenosis. No aneurysm. Left vertebral artery: No occlusion or significant stenosis. No aneurysm. Basilar artery: No occlusion or significant stenosis. No aneurysm. Right posterior cerebral artery: No occlusion or significant stenosis. No aneurysm. Left posterior cerebral artery: No occlusion or significant stenosis. No aneurysm. Brain: No definite mass, mass effect, or midline shift. Cerebral ventricles: No ventriculomegaly. Paranasal sinuses: The maxillary sinuses are nearly completely opacified with bilateral air-fluid levels present and frothy secretions. The right frontal sinus is also nearly completely opacified and there is moderate mucosal thickening in the ethmoids. The pattern is similar to the comparison CT head from 11/20/2022. Bones/joints: Unremarkable. No acute fracture. Soft tissues: Unremarkable. PROCEDURE INFORMATION: Exam: CTA Neck With Contrast Exam date and time: 11/24/2022 5:14 PM Age: 42 years old Clinical indication: Pain; Headache; Additional info: Persistant migraine TECHNIQUE: Imaging protocol: Computed tomographic angiography of the neck with contrast. 3D rendering (Not supervised by radiologist): MIP and/or 3D reconstructed images were created by the technologist. Radiation optimization: All CT scans at this facility use at least one of these dose optimization techniques: automated exposure control; mA and/or kV adjustment per patient size (includes targeted exams where dose is matched to clinical indication); or iterative reconstruction. Contrast material: OMNI 350; Contrast volume: 100 ml; Contrast route: INTRAVENOUS (IV); REPORTING DATA: Count of CT and Cardiac NM exams in prior 12 months: This patient has received 3 known CTs and 0 known cardiac nuclear medicine studies in the 12 months prior to the current study. COMPARISON: MR cervical spin wo con* [id number] 05/15/2022 3:15 PM RADIATION DOSE METRICS: Total DLP (mGy-cm): 1185.18 FINDINGS: Right common carotid artery: No stenosis. No dissection or occlusion. Right internal carotid artery: No stenosis of the extracranial segment. No dissection or occlusion. Right external carotid artery: No occlusion or stenosis of the origin. Left common carotid artery: No stenosis. No dissection or occlusion. Left internal carotid artery: No stenosis of the extracranial segment. No dissection or occlusion. Left external carotid artery: No occlusion or stenosis of the origin. Right vertebral artery: No stenosis. No dissection or occlusion. Left vertebral artery: No stenosis. No dissection or occlusion. Soft tissues: Normal. No significant soft tissue swelling. Bones/joints: No acute fracture. CT/CT angio headneck* [id number] IMPRESSION: 1. No stenosis or occlusion. 2. Acute pain sinusitis changes again present. IMPRESSION: No stenosis or occlusion. REFERENCES: NASCET CRITERIA. The degree of stenosis in the cervical segment of the internal carotid artery is based on NASCET criteria. Normal is no stenosis. Mild is less than 50% stenosis. Moderate is 50-69% stenosis. Severe is 70% to 99% stenosis. Total occlusion is no detectable patent lumen.
[2022-11-24 16:47] VITALS: BP 151/95; PULSE 113; O2SAT 96
--- NOTE | 2022-11-24 16:49 | ED_ITS ---
Documented by User: Osman Rios DO 11/26/22 07:04 HPI - Headache General: Chief Complaint: Headache Stated Complaint: head pain Time Seen by Provider: 11/24/22 16:39 Source: patient Mode of arrival: ambulatory History of Present Illness: 42-year-old female presents emergency room with complaints of migraine headache again. She has been here the last 2 days for stay we did DHE protocol it re solved her headache well enough she is able to go home she felt quite a bit better in the following day she had a recurrence the next day we did Depacon and she had complete resolution of her headache while she was in the emergency we discharge her home with topiramate to use prophylactically and she took 1 last evening and was doing well she took another this morning and began using computer and had gradual onset of a severe headache she contacted Dr. James again. She came in Dr. James's office Dr. James did Depacon x2 for a total of 1000 mg she also did nerve nerve blocks on the head. None of this relieved her symptoms. She contacted us emergency room and asked patient to go to the emergency room for reevaluation Dr. James was recommending a CTA and transfer to [place] for inpatient status migraine headache treatments. MD elicited complaint: migraine Onset (ago): day(s) Onset description: gradually Location: frontal Severity: severe Quality & Timing: throbbing and pulsatile Exacerbating factors: none Relieving factors: nothing Associated symptoms: Reports nausea; Deny chest pain, confusion, cough, diaphoresis, eye pain, eye redness, fever(s), lightheadedness, loss of vision, malaise, neck stiffness, numbness, paresthesias, photophobia, pre-syncope, rash, seizures, short of breath, sound sensitivity, syncope, vomiting or weakness Review of Systems Const: Denies: fever(s), chills, fatigue, malaise or diaphoresis ENMT: Denies: throat pain, ear or mastoid pain, nasal discharge or nasal congestion Card: Denies: chest pain, lightheadedness, syncope or pre-syncope Resp: Denies: dyspnea, productive cough or non-productive cough GI: Reports: nausea; Denies: abdominal pain or vomiting : Denies: flank pain, difficulty voiding, dysuria, urinary frequency or urinary urgency Skin/Breast: Denies: rash Neuro: Reports: headache(s); Denies: confusion PFSH ED PFSH: Medical History Anemia Diabetes Endometriosis Family history of colon cancer Gastroparesis Hyperlipidemia Hypertension PCOS (polycystic ovarian syndrome) Surgical History H/O esophagogastroduodenoscopy (02/03/20) History of back surgery (~2017) History of hysterectomy (~2015) History of laparoscopic cholecystectomy (~2006) Status post colonoscopy (02/03/20) normal Family History Denies family history of Anesthesia complication Bleeding disorder Social History Smoking and tobacco status: current every day smoker (Half a pack-a full pack ) cigarettes Packs smoked per day: 1 Second hand smoke exposure: No Alcohol intake: never Desire information about alcohol rehabilitation?: No Substance/Drug Use: never Adopted: No Caregiver/support person: Yes Lives independently: Yes Household members: spouse Housing: House Marital status: service: No 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 Pets and animals: No Leisure activites: exercise Sexually active: Yes Do you think of yourself as: Straight/Heterosexual Current gender identity: Female [employer]: [employer] Physical Exam Const: GENERAL APPEARANCE: cooperative and comfortable ORIENTATION/CONSCIOUSNESS: Yes awake, Yes oriented to person, Yes oriented to place and Yes oriented to time HENMT: COMMON NORMALS: normocephalic, atraumatic and hearing grossly normal bilaterally HEAD & SCALP: normocephalic and atraumatic Eye: DIRECT OPHTHALMOSCOPY: No photophobia Resp: COMMON NORMALS: normal respiratory effort, No retractions, No use of accessory muscles and clear to auscultation bilaterally AUSCULTATION: clear to auscultation bilaterally Cardio: COMMON NORMALS: regular rate, regular rhythm and No murmurs present (Cardio) RATE: regular rate RHYTHM: regular rhythm GI: COMMON NORMALS: Soft to palpation and No hepatosplenomegaly present AUSCULTATION: Yes normoactive bowel sounds PALPATION: Yes Soft to palpation, No Tenderness to palpation present (GI), No Guarding due to palpation present (GI) and Yes No hepatosplenomegaly present Extremity: COMMON NORMALS: normal to inspection, capillary refill normal, no clubbing, cyanosis or edema, no calf tenderness and no pedal edema Neuro: SENSORIUM/ORIENTATION: Yes oriented to person, Yes oriented to place and Yes oriented to time Skin: COMMON NORMALS: no rashes or lesions noted GENERAL SKIN EXAM: no rashes or lesions noted Course Vital Signs: Vital signs: Vital Signs Temperature 98.4 F 11/24/22 14:22 Pulse Rate 101 H 11/24/22 18:46 Respiratory Rate 18 11/24/22 18:46 Blood Pressure 125/101 11/24/22 18:46 Pulse Oximetry 99 11/24/22 18:46 Oxygen Delivery Me thod Room Air 11/24/22 14:22 MDM - Headache Medical Decision Making Care signed out to Dr. Ward at change of shift. See final notes for diagnosis and disposition. 42-year-old female checked out to me at shift change by Dr. Saleem. This young lady has had a time with recurrent migraines, and essentially status migrainosus. Currently she is essentially pain-free except for being tender around her injection sites from neurology earlier in the day. Her laboratory is essentially benign. Head CTA shows pansinusitis, with no bleed, no clot, and no stenosis. Consider transferring the patient for status migrainosus, but now she is pain-free. She would prefer not to be transferred, if possible, due to the chance that she would be sent home given her relief of pain. Had a long discussion with her and her . They wish to try treatment at home. She will continue her topiramate at twice daily, she will take Phenergan twice daily for the next 48 hours, will prescribe her intranasal Imitrex for treatment as needed, and treated with 2 weeks of doxycycline for pansinusitis. She will return if needed Lab Data 11/24/22 16:54 11/24/22 16:54 Radiology Impressions Head/Neck CTA 11/24/22 16:39 IMPRESSION: 1. No stenosis or occlusion. 2. Acute pain sinusitis changes again present. IMPRESSION: No stenosis or occlusion. REFERENCES: NASCET CRITERIA. The degree of stenosis in the cervical segment of the internal carotid artery is based on NASCET criteria. Normal is no stenosis. Mild is less than 50% stenosis. Moderate is 50-69% stenosis. Severe is 70% to 99% stenosis. Total occlusion is no detectable patent lumen. Laboratory Results WBC 11.2 10^3/uL (4.0-10.0) H 11/24/22 16:54 RBC 4.92 10^6/uL (4.1-5.3) 11/24/22 16:54 Hgb 13.8 g/dL (11.5-15.3) 11/24/22 16:54 Hct 43.6 % (37.0-47.0) 11/24/22 16:54 MCV 88.6 fl (81-99) 11/24/22 16:54 MCH 28.0 pg (28.0-34.0) 11/24/22 16:54 MCHC 31.7 g/dL (30.0-36.0) 11/24/22 16:54 RDW 12.5 % (12.1-15.1) 11/24/22 16:54 Plt Count 411 10^3/cmm (130-400) H 11/24/22 16:54 MPV 9.5 fL (7.4-10.4) 11/24/22 16:54 Neut % (Auto) 74.0 % 11/24/22 16:54 Lymph % (Auto) 16.1 % 11/24/22 16:54 Bulloch % (Auto) 6.0 % 11/24/22 16:54 Eos % (Auto) 1.5 % 11/24/22 16:54 Baso % (Auto) 0.8 % 11/24/22 16:54 Neut # (Auto) 8.25 10^3/uL (1.8-7.7) H 11/24/22 16:54 Lymph # (Auto) 1.8 10^3/uL (0.8-4.8) 11/24/22 16:54 Bulloch # (Auto) 0.7 10^3/uL (0.2-0.9) 11/24/22 16:54 Eos # (Auto) 0.2 10^3/uL (0.0-0.8) 11/24/22 16:54 Baso # (Auto) 0.1 10^3/uL (0.0-0.1) 11/24/22 16:54 Nucleated RBC % (auto) 0 % 11/24/22 16:54 Nucleated RBCs # 0.0 /100WBC 11/24/22 16:54 Sodium 139 mmol/L (136-145) 11/24/22 16:54 Potassium 4.1 mmol/L (3.5-5.1) 11/24/22 16:54 Chloride 101 mmol/L (98-107) 11/24/22 16:54 Carbon Dioxide 23 mmol/L (22-29) 11/24/22 16:54 Anion Gap 19.1 (5-19) H 11/24/22 16:54 BUN 10 mg/dL (6-20) 11/24/22 16:54 Creatinine 0.6 mg/dL (0.5-0.9) 11/24/22 16:54 GFR Calculation 110.7 mL/min (90-130) 11/24/22 16:54 Glucose 149 mg/dL (65-115) H 11/24/22 16:54 Calculated Osmolality 290 mOsm/kg (285-295) 11/24/22 16:54 Calcium 9.3 mg/dL (8.5-10.5) 11/24/22 16:54 Total Bilirubin 0.6 mg/dL (0.15-1.2) 11/24/22 16:54 AST 28 U/L (0-32) 11/24/22 16:54 ALT 41 U/L (0-33) H 11/24/22 16:54 Alkaline Phosphatase 135 U/L (35-105) H 11/24/22 16:54 Total Protein 8.6 g/dL (6.6-8.7) 11/24/22 16:54 Albumin 4.4 g/dL (3.5-5.2) 11/24/22 16:54 Globulin 4.2 g/dL (1.3-4.6) 11/24/22 16:54 Discharge Plan Discharge Patient Disposition: Home Clinical Impression: Migraine Qualifiers: Status migrainosus presence: with status migrainosus Condition: Stable Prescriptions: New doxycycline hyclate 100 mg capsule 100 mg PO BID 14 Days Qty: 28 0RF Imitrex 20 mg/actuation spray,non-aerosol 20 mg intranasal Q2H PRN (Reason: migraine headache) Qty: 6 0RF Rx Instructions: administer into one nostril as a single dose; if 2nd dose needed,administer into other nostril after at least 2 hrs, NTE 2 doses (40 mg) per episode No Action insulin aspart U-100 [Novolog FlexPen U-100 Insulin] 100 unit/mL (3 mL) insulin pen 10 unit SUBCUT TID losartan 25 mg tablet 25 mg PO DAILY citalopram 40 mg tablet 40 mg PO DAILY pioglitazone [Actos] 30 mg tablet 30 mg PO DAILY Basaglar KwikPen U-100 Insulin 100 unit/mL (3 mL) insulin pen 80 unit SUBCUT BID divalproex 250 mg tablet extended release 24 hr PO dicyclomine 10 mg capsule 10 mg PO QID A-[id number] ox-cupric ox-lutein 7,160 unit- 113 mg-0.5 mg tablet 2 tab PO BID cholecalciferol (vitamin D3) 1,250 mcg (50,000 unit) capsule PO hyoscyamine sulfate 0.125 mg tablet 0.125 mg PO QID Emgality Pen 120 mg/mL pen injector See Rx Instructions .ROUTE .COMPLEX Qty: 2 0RF Dose Instruction: 240 MG (2 ML) SUBCUTANEOUSLY ONCE LOADING DOSE FOR THE FIRST MONTH Rx Instructions: 240 MG (2 ML) SUBCUTANEOUSLY ONCE LOADING DOSE FOR THE FIRST MONTH Emgality Pen 120 mg/mL pen injector 120 mg SUBCUT ONCE Qty: 1 0RF capsaicin 0.025 % cream 1 applic topical DAILY Qty: 25 0RF Rx Instructions: Apply to affected area once daily. Do not wash area for at least 30 min after application gabapentin 300 mg capsule See Rx Instructions .ROUTE .COMPLEX Qty: 240 0RF Dose Instruction: TAKE 2 CAPSULES BY MOUTH 4 TIMES A DAY Rx Instructions: TAKE 2 CAPSULES BY MOUTH 4 TIMES A DAY atorvastatin 40 mg Tablet 40 mg PO DAILY diphenhydramine HCl 50 mg Capsule 50 mg PO BEDTIME PRN (Reason: Insomnia) hydrocodone-acetaminophen 5-325 mg tablet 1 tab PO Q8H PRN (Reason: pain (scale score 7-10)) Qty: 6 0RF hydrocodone-acetaminophen 5-325 mg tablet 1 tab PO Q6H PRN (Reason: pain) Qty: 14 0RF ondansetron 4 mg tablet,disintegrating 4 mg PO Q6H PRN (Reason: nausea and vomiting) Qty: 14 0RF Augmentin 500-125 mg tablet 1 tab PO BID Qty: 14 0RF Topamax 50 mg tablet 50 mg PO .QHS Qty: 30 0RF Discharge Orders: Discharge ED (Routine); Ordered 11/24/22 Ordered By: Doug Ward Referrals: Stacey James MD [Primary Care Provider] - 1-3 days Patient Instructions: Migraine Headache (ED), Opioid Safety, Pain Management Activity Restrictions/Additional Instructions: Take your home topiramate twice daily. Take your home promethazine twice daily for the next 48 hours. Use the intranasal Imitrex as needed for return of headache. Antibiotics as directed for sinusitis. Return for return of headach e, any fever, weakness, language problems, vision problems, any other concerning symptoms. Coding Level of Care Code ED [employer] for [employer]g [employer] Documented by User: Doug Ward DO 11/25/22 00:30 HPI - Headache General: Chief Complaint: Headache Stated Complaint: head pain Time Seen by Provider: 11/24/22 16:39 PFSH ED PFSH: Medical History Anemia Diabetes Endometriosis Family history of colon cancer Gastroparesis Hyperlipidemia Hypertension PCOS (polycystic ovarian syndrome) Surgical History H/O esophagogastroduodenoscopy (02/03/20) History of back surgery (~2017) History of hysterectomy (~2015) History of laparoscopic cholecystectomy (~2006) Status post colonoscopy (02/03/20) normal Family History Denies family history of Anesthesia complication Bleeding disorder Social History Smoking and tobacco status: current every day smoker (Half a pack-a full pack ) cigarettes Packs smoked per day: 1 Second hand smoke exposure: No Alcohol intake: never Desire information about alcohol rehabilitation?: No Substance/Drug Use: never Adopted: No Caregiver/support person: Yes Lives independently: Yes Household members: spouse Housing: House Marital status: service: No 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 Saleem. This young lady has had a time with recurrent migraines, and essentially status migra inosus. Currently she is essentially pain-free except for being tender around her injection sites from neurology earlier in the day. Her laboratory is essentially benign. Head CTA shows pansinusitis, with no bleed, no clot, and no stenosis. Consider transferring the patient for status migrainosus, but now she is pain-free. She would prefer not to be transferred, if possible, due to the chance that she would be sent home given her relief of pain. Had a long discussion with her and her . They wish to try treatment at home. She will continue her topiramate at twice daily, she will take Phenergan twice daily for the next 48 hours, will prescribe her intranasal Imitrex for treatment as needed, and treated with 2 weeks of doxycycline for pansinusitis. She will return if needed Lab Data 11/24/22 16:54 11/24/22 16:54 Radiology Impressions Head/Neck CTA 11/24/22 16:39 IMPRESSION: 1. No stenosis or occlusion. 2. Acute pain sinusitis changes again present. IMPRESSION: No stenosis or occlusion. REFERENCES: NASCET CRITERIA. The degree of stenosis in the cervical segment of the internal carotid artery is based on NASCET criteria. Normal is no stenosis. Mild is less than 50% stenosis. Moderate is 50-69% stenosis. Severe is 70% to 99% stenosis. Total occlusion is no detectable patent lumen. Laboratory Results WBC 11.2 10^3/uL (4.0-10.0) H 11/24/22 16:54 RBC 4.92 10^6/uL (4.1-5.3) 11/24/22 16:54 Hgb 13.8 g/dL (11.5-15.3) 11/24/22 16:54 Hct 43.6 % (37.0-47.0) 11/24/22 16:54 MCV 88.6 fl (81-99) 11/24/22 16:54 MCH 28.0 pg (28.0-34.0) 11/24/22 16:54 MCHC 31.7 g/dL (30.0-36.0) 11/24/22 16:54 RDW 12.5 % (12.1-15.1) 11/24/22 16:54 Plt Count 411 10^3/cmm (130-400) H 11/24/22 16:54 MPV 9.5 fL (7.4-10.4) 11/24/22 16:54 Neut % (Auto) 74.0 % 11/24/22 16:54 Lymph % (Auto) 16.1 % 11/24/22 16:54 Bulloch % (Auto) 6.0 % 11/24/22 16:54 Eos % (Auto) 1.5 % 11/24/22 16:54 Baso % (Auto) 0.8 % 11/24/22 16:54 Neut # (Auto) 8.25 10^3/uL (1.8-7.7) H 11/24/22 16:54 Lymph # (Auto) 1.8 10^3/uL (0.8-4.8) 11/24/22 16:54 Bulloch # (Auto) 0.7 10^3/uL (0.2-0.9) 11/24/22 16:54 Eos # (Auto) 0.2 10^3/uL (0.0-0.8) 11/24/22 16:54 Baso # (Auto) 0.1 10^3/uL (0.0-0.1) 11/24/22 16:54 Nucleated RBC % (auto) 0 % 11/24/22 16:54 Nucleated RBCs # 0.0 /100WBC 11/24/22 16:54 Sodium 139 mmol/L (136-145) 11/24/22 16:54 Potassium 4.1 mmol/L (3.5-5.1) 11/24/22 16:54 Chloride 101 mmol/L (98-107) 11/24/22 16:54 Carbon Dioxide 23 mmol/L (22-29) 11/24/22 16:54 Anion Gap 19.1 (5-19) H 11/24/22 16:54 BUN 10 mg/dL (6-20) 11/24/22 16:54 Creatinine 0.6 mg/dL (0.5-0.9) 11/24/22 16:54 GFR Calculation 110.7 mL/min (90-130) 11/24/22 16:54 Glucose 149 mg/dL (65-115) H 11/24/22 16:54 Calculated Osmolality 290 mOsm/kg (285-295) 11/24/22 16:54 Calcium 9.3 mg/dL (8.5-10.5) 11/24/22 16:54 Total Bilirubin 0.6 mg/dL (0.15-1.2) 11/24/22 16:54 AST 28 U/L (0-32) 11/24/22 16:54 ALT 41 U/L (0-33) H 11/24/22 16:54 Alkaline Phosphatase 135 U/L (35-105) H 11/24/22 16:54 Total Protein 8.6 g/dL (6.6-8.7) 11/24/22 16:54 Albumin 4.4 g/dL (3.5-5.2) 11/24/22 16:54 Globulin 4.2 g/dL (1.3-4.6) 11/24/22 16:54 Discharge Plan Discharge Patient Disposition: Home Clinical Impression: Migraine Qualifiers: Status migrainosus presence: with status migrainosus Condition: Stable Prescriptions: New doxycycline hyclate 100 mg capsule 100 mg PO BID 14 Days Qty: 28 0RF Imitrex 20 mg/actuation spray,non-aerosol 20 mg intranasal Q2H PRN (Reason: migraine headache) Qty: 6 0RF Rx Instructions: administer into one nostril as a single dose; if 2nd dose needed,administer into other nostril after at least 2 hrs, NTE 2 doses (40 mg) per episode No Action insulin aspart U-100 [Novolog FlexPen U-100 Insulin] 100 unit/mL (3 mL) insulin pen 10 unit SUBCUT TID losartan 25 mg tablet 25 mg PO DAILY citalopram 40 mg tablet 40 mg PO DAILY pioglitazone [Actos] 30 mg tablet 30 mg PO DAILY Basaglar KwikPen U-100 Insulin 100 unit/mL (3 mL) insulin pen 80 unit SUBCUT BID divalproex 250 mg tablet extended release 24 hr PO dicyclomine 10 mg capsule 10 mg PO QID A-C-E-zinc ox-cupric ox-lutein 7,160 unit- 113 mg-0.5 mg tablet 2 tab PO BID cholecalciferol (vitamin D3) 1,250 mcg (50,000 unit) capsule PO hyoscyamine sulfate 0.125 mg tablet 0.125 mg PO QID Emgality Pen 120 mg/mL pen injector See Rx Instructions .ROUTE .COMPLEX Qty: 2 0RF Dose Instruction: 240 MG (2 ML) SUBCUTANEOUSLY ONCE LOADING DOSE FOR THE FIRST MONTH Rx Instructions: 240 MG (2 ML) SUBCUTANEOUSLY ONCE LOADING DOSE FOR THE FIRST MONTH Emgality Pen 120 mg/mL pen injector 120 mg SUBCUT ONCE Qty: 1 0RF capsaicin 0.025 % cream 1 applic topical DAILY Qty: 25 0RF Rx Instructions: Apply to affected area once daily. Do not wash area for at least 30 min after application gabapentin 300 mg capsule See Rx Instructions .ROUTE .COMPLEX Qty: 240 0RF Dose Instruction: TAKE 2 CAPSULES BY MOUTH 4 TIMES A DAY Rx Instructions: TAKE 2 CAPSULES BY MOUTH 4 TIMES A DAY atorvastatin 40 mg Tablet 40 mg PO DAILY diphenhydramine HCl 50 mg Capsule 50 mg PO BEDTIME PRN (Reason: Insomnia) hydrocodone-acetaminophen 5-325 mg tablet 1 tab PO Q8H PRN (Reason: pain (scale score 7-10)) Qty: 6 0RF hydrocodone-acetaminophen 5-325 mg tablet 1 tab PO Q6H PRN (Reason: pain) Qty: 14 0RF ondansetron 4 mg tablet,disintegrating 4 mg PO Q6H PRN (Reason: nausea and vomiting) Qty: 14 0RF Augmentin 500-125 mg tablet 1 tab PO BID Qty: 14 0RF Topamax 50 mg tablet 50 mg PO .QHS Qty: 30 0RF Discharge Orders: Discharge ED (Routine); Ordered 11/24/22 Ordered By: Doug Ward Referrals: Stacey James MD [Primary Care Provider] - 1-3 days Patient Instructions: Migraine Headache (ED), Opioid Safety, Pain Management Activity Restrictions/Additional Instructions: Take your home topiramate twice daily. Take your home promethazine twice daily for the next 48 hours. Use the intranasal Imitrex as needed for return of headache. Antibiotics as directed for sinusitis. Return for return of headache, any fever, weakness, language problems, vision problems, any other concerning symptoms. Coding Level of Care Code ED [employer] for Velia Cantu
[2022-11-24] MEDS: ketorolac 30 mg/mL INJ IVP (16:58)
[2022-11-24] MEDS: promethazine 25 mg/mL SDV 1 mL IM (16:58)
[2022-11-24] MEDS: sodium chloride 0.9% 1,000 ML 999 ML IV (16:58)
[2022-11-24 17:11] LABS: Basophils # 0.1 10^3/uL (0.0-0.1); Basophils % 0.8 %; Eosinophils # 0.2 10^3/uL (0.0-0.8); Eosinophils % 1.5 %; Hematocrit 43.6 % (37.0-47.0); Hemoglobin 13.8 g/dL (11.5-15.3); Lymphocytes # 1.8 10^3/uL (0.8-4.8); Lymphocytes % 16.1 %; Mean Corpuscular HGB Conc 31.7 g/dL (30.0-36.0); Mean Corpuscular Volume 88.6 fl (81-99); Mean Platelet Volume 9.5 fL (7.4-10.4); Monocytes # 0.7 10^3/uL (0.2-0.9); Neutrophils # 8.25 10^3/uL (1.8-7.7); Nucleated Red Blood Cells % 0 %; Platelet Count 411 10^3/cmm (130-400); Red Blood Count 4.92 10^6/uL (4.1-5.3); Red Cell Distribution Width 12.5 % (12.1-15.1); White Blood Count 11.2 10^3/uL (4.0-10.0)
[2022-11-24 17:20] VITALS: BP 164/83
[2022-11-24] MEDS: iohexol 350 mg/mL 500 mL Btl (per mL) IV (17:30)
[2022-11-24 17:38] LABS: Alanine Aminotransferase 41 U/L (0-33); Albumin Level 4.4 g/dL (3.5-5.2); Alkaline Phosphatase 135 U/L (35-105); Anion Gap 19.1 (5-19); Aspartate Amino Transferase 28 U/L (0-32); Blood Urea Nitrogen 10 mg/dL (6-20); Calcium 9.3 mg/dL (8.5-10.5); Carbon Dioxide 23 mmol/L (22-29); Chloride 101 mmol/L (98-107); Globulin 4.2 g/dL (1.3-4.6); Glomerular Filtration Rate 110.7 mL/min (90-130); Glucose 149 mg/dL (65-115); Osmolality Calculated 290 mOsm/kg (285-295); Potassium 4.1 mmol/L (3.5-5.1); Sodium 139 mmol/L (136-145); Total Bilirubin 0.6 mg/dL (0.15-1.2); Total Protein 8.6 g/dL (6.6-8.7)
[2022-11-24 17:48] VITALS: BP 129/68; O2SAT 95
[2022-11-24] MEDS: doxycycline 100 mg Tablet PO (18:38)
[2022-11-24 18:39] VITALS: BP 125/101; PULSE 101; O2SAT 99
[2022-11-24 18:46] VITALS: BP 125/101; PULSE 101; RESP 18; O2SAT 99
--- NOTE | 2022-11-27 12:11 | PC.SOCIAL ---
CM Consult Spoke with Jessica at HOME about possible home oximetry; she stated that test would not qualify patient for bipap or cpap, only oxygen. Attempted to call patient to speak with her about seeing her PCP and discuss the need for an outpatient sleep study. Unable to reach, voicemail left.
--- NOTE | 2022-11-27 13:23 | PC.SOCIAL ---
Spoke with patient about outpatient sleep study. She states that she sees her primary care on Sunday and will speak with them about possible sleep study.
== END 2022-11-24 18:47 | disposition home or self-care (01) ==
PROVIDERS: Family Medicine; Emergency Provider Emergency Medicine; PCP Specialist
DX: G43.901 Migraine, unspecified, not intractable, with status migrainosus (principal); Z79.4 Long term (current) use of insulin; F17.210 Nicotine dependence, cigarettes, uncomplicated; E11.9 Type 2 diabetes mellitus without complications; E78.5 Hyperlipidemia, unspecified; I10 Essential (primary) hypertension
CPT/HCPCS: 70496; 70498; 80053; 85025; 96372; 96374; 99285; J1885; J2550; J7030; Q9967

== ENCOUNTER 2023-01-01 13:30 | Outpatient (CLI) | payer BC, SELFPAY | END 2023-01-01 13:31 | disposition home or self-care (01) | LOC: SLEEP 01-02 09:32 | PROVIDERS: PCP Specialist; Visit Provider Registered Nurse | DX: G47.33 Obstructive sleep apnea (adult) (pediatric) (principal) | CPT/HCPCS: G0399 ==

== ENCOUNTER 2023-04-18 06:03 | Day surgery (SDC) | payer BC, SELFPAY ==
[2023-04-16 15:54] VITALS: BMI 40.0
[2023-04-18 06:10] VITALS: BP 149/107; PULSE 123; RESP 18; TEMP 35.6; O2SAT 98
[2023-04-18] MEDS: sodium chloride 0.9% 1,000 ML 30 ML IV (06:44)
--- NOTE | 2023-04-18 06:55 | ANES.PREANE2 ---
Pre-Anesthetic Assessment Height/Weight: Height 1.83 m Weight 133.81 kg Temp Pulse Resp BP Pulse Ox O2 Del Method 96.0 F L 123 H 18 149/107 98 Room Air 04/18/23 06:10 04/18/23 06:10 04/18/23 06:10 04/18/23 06:10 04/18/23 06:10 04/18/23 06:10 Operation Date: 04/18/23 07:00 Proposed Procedures p [id number] diagnositic colonoscopy K92.1,K62.89(Not Applicable) - Brett Baldwin DO Familial anesthetic complications: none Was Beta Yuly taken within 24 hours: N/A Was Clonidine taken within 24 hours: N/A Last intake: Intake Last Liquid Date 04/17/23 Last Liquid Time 21:30 Last Solid Date 04/16/23 Last Solid Time 18:00 Social Tobacco (.5 ppd) and No alcohol Exam alert and oriented x 3 Airway Submandibular: within normal limits Cervical ROM: within normal limits Mallampati: Class IV Dentition: false (uppers) Comments: Comments: small mouth opening, large tonsils History/ROS No significant history except as noted Pulmonary None reported CV/HEM Hypertension None reported Hepatic None reported GI Gastroesophageal Reflux Disease Metabolic Diabetes Mellitus and Morbid Obesity [facility] [place] None reported Neuropsych None reported Anesthetic Plan ASA status: 3 Anesthesia: Anesthesia Evaluation, General and MAC Medications/Allergies Home Medications Medication Instructions Recorded Confirmed Last Taken Type citalopram 40 mg tablet 40 mg PO DAILY 01/16/20 04/18/23 04/17/23 History insulin aspart U-100 100 unit/mL 10 unit SUBCUT TID PRN 01/16/20 04/18/23 04/17/23 History (3 mL) subcutaneous pen (Novolog Hyperglycemia FlexPen U-100 Insulin aspart) insulin glargine 100 unit/mL (3 80 unit SUBCUT BID 01/16/20 04/18/23 04/17/23 History mL) subcutaneous pen (Basaglar KwikPen U-100 Insulin) losartan 25 mg tablet 25 mg PO DAILY 01/16/20 04/18/23 04/17/23 History pioglitazone 30 mg tablet (Actos) 30 mg PO DAILY 01/16/20 04/18/23 04/17/23 History atorvastatin 40 mg tablet 40 mg PO BEDTIME 01/19/20 04/18/23 04/17/23 History diphenhydramine HCl 50 mg capsule 50 mg PO BEDTIME PRN Insomnia 02/03/20 04/18/23 04/17/23 History hyoscyamine sulfate 0.125 mg tablet 0.125 mg PO QID PRN Stomach Upset 03/20/22 04/18/23 Unknown History ondansetron 4 mg disintegrating 4 mg PO Q6H PRN nausea and 11/20/22 04/18/23 04/14/23 Rx tablet vomiting #14 tabs amitriptyline 25 mg tablet 25 mg PO BEDTIME 03/15/23 04/18/23 04/17/23 History verapamil 80 mg tablet 80 tab PO .QOD PM 03/15/23 04/18/23 04/17/23 History gabapentin 300 mg capsule 600 mg PO QID PRN Pain 04/16/23 04/18/23 04/16/23 History hydrocortisone 2.5 % topical cream 1 applic MD QID PRN Hemorrhoids 04/16/23 04/18/23 Unknown History with perineal applicator (Anusol-HC) metoclopramide HCl 10 mg tablet 10 mg PO .QOD PM 04/16/23 04/18/23 04/17/23 History sumatriptan succinate 6 mg/0.5 mL 6 mg SUBCUT DAILY PRN Migraine 04/16/23 04/18/23 04/14/23 History subcutaneous pen injector Headache triamcinolone acetonide 0.5 % 1 applic topical BID 04/16/23 04/18/23 04/16/23 History topical cream Allergies Allergy/AdvReac Type Severity Reaction Status Date / Time adhesive tape Allergy Severe ALGY-Bliste Verified 04/18/23 06:14 r morphine Allergy Unknown Verified 04/18/23 06:14 Current Medications Generic Name Dose Route Start Last Admin Trade Name Freq PRN Reason Stop Dose Admin Sodium Chloride 1,000 mls @ 30 mls/hr 04/18/23 06:15 04/18/23 06:44 Sodium Chloride 0.9% IV 04/19/23 06:14 30 mls/hr .Q24H MARNI Administration PFSH Anesthesia Medical History (Updated 03/15/23 @ 08:44 by Brett Baldwin DO) Anemia Diabetes Endometriosis Family history of colon cancer Gastroparesis Hyperlipidemia Hypertension PCOS (polycystic ovarian syndrome) Surgical History (Updated 03/15/23 @ 08:44 by Brett Baldwin DO) H/O esophagogastroduodenoscopy (02/03/20) History of back surgery (~2017) History of hysterectomy (~2015) History of laparoscopic cholecystectomy (~2006) Hx of knee surgery bilateral Status post colonoscopy (02/03/20) normal Family History Denies family history of Anesthesia complication Bleeding disorder Social History Smoking and tobacco status: current every day smoker (Half a pack-a full pack ) cigarettes Packs smoked per day: 1 Second hand smoke exposure: No Alcohol intake: never Desire information about alcohol rehabilitation?: No Substance/Drug Use: never Adopted: No Caregiver/support person: Yes Lives independently: Yes Household members: spouse Housing: House Marital status: service: No 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
--- NOTE | 2023-04-18 07:00 | PM.HP ---
Providers/Chief Complaint Primary Care Provider: Enedina Brizuela Chief Complaint: K92.1, K62.89 History of Present Illness Nicole Desouza is a 43 year old female Review of Systems General: Reports: 10 or more systems reviewed and unremarkable except in HPI and below Medications/Allergies Home Medications Medication Instructions Recorded Confirmed Last Taken Type citalopram 40 mg tablet 40 mg PO DAILY 01/16/20 04/18/23 04/17/23 History insulin aspart U-100 100 unit/mL 10 unit SUBCUT TID PRN 01/16/20 04/18/23 04/17/23 History (3 mL) subcutaneous pen (Novolog Hyperglycemia FlexPen U-100 Insulin aspart) insulin glargine 100 unit/mL (3 80 unit SUBCUT BID 01/16/20 04/18/23 04/17/23 History mL) subcutaneous pen (Basaglar KwikPen U-100 Insulin) losartan 25 mg tablet 25 mg PO DAILY 01/16/20 04/18/23 04/17/23 History pioglitazone 30 mg tablet (Actos) 30 mg PO DAILY 01/16/20 04/18/23 04/17/23 History atorvastatin 40 mg tablet 40 mg PO BEDTIME 01/19/20 04/18/23 04/17/23 History diphenhydramine HCl 50 mg capsule 50 mg PO BEDTIME PRN Insomnia 02/03/20 04/18/23 04/17/23 History hyoscyamine sulfate 0.125 mg tablet 0.125 mg PO QID PRN Stomach Upset 03/20/22 04/18/23 Unknown History ondansetron 4 mg disintegrating 4 mg PO Q6H PRN nausea and 11/20/22 04/18/23 04/14/23 Rx tablet vomiting #14 tabs amitriptyline 25 mg tablet 25 mg PO BEDTIME 03/15/23 04/18/23 04/17/23 History verapamil 80 mg tablet 80 tab PO .QOD PM 03/15/23 04/18/23 04/17/23 History gabapentin 300 mg capsule 600 mg PO QID PRN Pain 04/16/23 04/18/23 04/16/23 History hydrocortisone 2.5 % topical cream 1 applic GA QID PRN Hemorrhoids 04/16/23 04/18/23 Unknown History with perineal applicator (Anusol-HC) metoclopramide HCl 10 mg tablet 10 mg PO .QOD PM 04/16/23 04/18/23 04/17/23 History sumatriptan succinate 6 mg/0.5 mL 6 mg SUBCUT DAILY PRN Migraine 04/16/23 04/18/23 04/14/23 History subcutaneous pen injector Headache triamcinolone acetonide 0.5 % 1 applic topical BID 04/16/23 04/18/23 04/16/23 History topical cream Allergies Allergy/AdvReac Type Severity Reaction Status Date / Time adhesive tape Allergy Severe ALGY-Bliste Verified 04/18/23 06:14 r morphine Allergy Unknown Verified 04/18/23 06:14 PFSH Acute PFSH: Medical History (Updated 03/15/23 @ 08:44 by Brett Baldwin DO) Anemia Diabetes Endometriosis Family history of colon cancer Gastroparesis Hyperlipidemia Hypertension PCOS (polycystic ovarian syndrome) Surgical History (Updated 03/15/23 @ 08:44 by Brett Baldwin DO) H/O esophagogastroduodenoscopy (02/03/20) History of back surgery (~2017) History of hysterectomy (~2015) History of laparoscopic cholecystectomy (~2006) Hx of knee surgery bilateral Status post colonoscopy (02/03/20) normal Family History Denies family history of Anesthesia complication Bleeding disorder Social History Smoking and tobacco status: current every day smoker (Half a pack-a full pack ) cigarettes Packs smoked per day: 1 Second hand smoke exposure: No Alcohol intake: never Desire information about alcohol rehabilitation?: No Substance/Drug Use: never Adopted: No Caregiver/support person: Yes Lives independently: Yes Household members: spouse Housing: House Marital status: service: No 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 Pets and animals: No Leisure activites: exercise Sexually active: Yes Do you think of yourself as: Straight/Heterosexual Current gender identity: Female Akosua/Sikhism: Islam Vitals/I&O/Wt Last Vital Signs Temp 96.0 F L 04/18/23 06:10 Pulse 123 H 04/18/23 06:10 Resp 18 04/18/23 06:10 BP 149/107 04/18/23 06:10 Pulse Ox 98 04/18/23 06:10 O2 Del Method Room Air 04/18/23 06:10 Weight last 48 hrs Weight 295 lb A&P Assessment and plan (1) Hematochezia: (2) Rectal pain: Plan cOLONOSCOPY Attestations Medical Necessity Statement*: home Coding Level of Care Code Acute Code for [facility] Fwd Diagnoses Hematochezia K92.1 Rectal pain K62.89
[2023-04-18 07:21] VITALS: BP 127/86; PULSE 99; RESP 18; TEMP 36.3; O2SAT 92
[2023-04-18 07:26] LABS: Glucose Point of Care 252 mg/dL (70-110)
[2023-04-18 07:31] VITALS: BP 140/90; PULSE 102; RESP 16; O2SAT 94
--- NOTE | 2023-04-18 07:35 | ANE.PACU2 ---
Inpatient post-anesthesia follow up: Airway intact: Yes Vital signs: Temperature 97.4 F Pulse Rate 102 Respiratory Rate 16 Blood Pressure 140/90 Pulse Oximetry 94 Oxygen Delivery Me thod Room Air Oxygen Flow Rate 2 Fraction of Inspir ed Oxygen Hydration adequate: Yes Nausea and vomiting: No Pain level: 1 Mental status: Baseline
== END 2023-04-18 07:52 | disposition home or self-care (01) ==
PROVIDERS: PCP Registered Nurse; Visit Provider Surgery
PROC: 0DJD8ZZ Inspection of Lower Intestinal Tract, Via Natural or Artificial Opening Endoscopic (ICD-10-PCS; CPT 45378; principal; 2023-04-18 07:00)
DX: K92.1 Melena (principal); K62.89 Other specified diseases of anus and rectum; K60.2 Anal fissure, unspecified; K64.8 Other hemorrhoids; Z79.4 Long term (current) use of insulin; E11.9 Type 2 diabetes mellitus without complications; E78.5 Hyperlipidemia, unspecified; I10 Essential (primary) hypertension; E28.2 Polycystic ovarian syndrome; F17.210 Nicotine dependence, cigarettes, uncomplicated; K21.9 Gastro-esophageal reflux disease without esophagitis; E66.01 Morbid (severe) obesity due to excess calories; Z68.41 Body mass index [BMI] 40.0-44.9, adult; Z80.0 Family history of malignant neoplasm of digestive organs
CPT/HCPCS: 36416; 45378; 82962; J2704; J7030

== ENCOUNTER 2023-08-09 16:17 | Emergency (ER) | payer BC, SELFPAY ==
[2023-08-09 16:26] VITALS: BP 149/90; PULSE 82; RESP 18; TEMP 36.6; O2SAT 92; BMI 40.6
[2023-08-09 16:37] VITALS: BP 156/97; PULSE 94; RESP 14
--- NOTE | 2023-08-09 16:41 | W.ED.HA ---
HPI - Headache General: Chief Complaint: Headache Stated Complaint: sent over by dr contreras Time Seen by Provider: 08/09/23 16:36 History of Present Illness: 43-year-old female comes in today with complaints of persistent headache. Patient has a history of intractable migraine/cluster headaches. Usually affects her right. Patient usually is able to control it with high flow oxygen and triptans done at home. Patient appears nontoxic. Patient is alert and oriented. Patient was referred to the ER by her primary care physician for abortive medications. Patient reports no new symptoms or different symptoms than her usual headache syndrome. Review of Systems General: Reports: 10 or more systems reviewed and unremarkable except in HPI and below Neuro: Reports: headache(s) PFSH ED PFSH: Medical History Endometriosis PCOS (polycystic ovarian syndrome) Gastroparesis Family history of colon cancer Anemia Hyperlipidemia Diabetes Hypertension Surgical History Hx of knee surgery bilateral H/O esophagogastroduodenoscopy (02/03/20) Status post colonoscopy (02/03/20) normal History of hysterectomy (~2016) History of back surgery (~2018) History of laparoscopic cholecystectomy (~2006) Family History Denies family history of Anesthesia complication Bleeding disorder Social History Smoking and tobacco/nicotine status: current every day tobacco/nicotine user (Half a pack-a full pack ) cigarettes Packs smoked per day: 1 Second hand smoke exposure: No Alcohol intake: never Substance/Drug Use: never Adopted: No Caregiver/support person: Yes Lives independently: Yes Household members: spouse Housing: House Marital status: service: No 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 Pets and animals: No Leisure activites: exercise Sexually active: Yes Do you think of yourself as: Straight/Heterosexual Current gender identity: Female Akosua/Worship: Episcopal Physical Exam Const: COMMON NORMALS: alert HENMT: COMMON NORMALS: normocephalic HEAD & SCALP: normocephalic Neck/C-Spine: COMMON NORMALS: full ROM Resp: COMMON NORMALS: normal respiratory effort Cardio: COMMON NORMALS: regular rate RATE: regular rate GI: COMMON NORMALS: Soft to palpation and non-tender PALPATION: Yes Soft to palpation Back/Pelvis: COMMON NORMALS: thoracic and lumbar spine normal to inspection Extremity: COMMON NORMALS: normal to inspection Neuro: SENSORIUM/ORIENTATION: Yes alert Skin: COMMON NORMALS: turgor normal GENERAL SKIN EXAM: turgor normal Course Vital Signs: Vital signs: Vital Signs Temperature 97.8 F 08/09/23 16:26 Pulse Rate 94 08/09/23 16:37 Respiratory Rate 16 08/09/23 18:09 Blood Pressure 156/97 08/09/23 16:37 Pulse Oximetry 94 08/09/23 18:09 Oxygen Delivery Me thod Room Air 08/09/23 16:26 MDM - Headache Medical Decision Making 43-year-old female comes in with a history of intractable headaches. Patient has triptan therapy and high flow oxygen at home for abortive therapy but has had continued persistent symptoms even with the use of home medications. Patient has been medicated with promethazine and Toradol and Zofran and Toradol over the last 5 days at urgent care. Patient reports minimal relief but no abortive response. On exam no focal neurodeficits. Pupils are equal and reactive. Respirations are even lungs are clear to auscultation. Vital signs are normal except for some mild elevation of blood pressure at 150 systolic. Differential diagnosis includes malingering, cluster headache, migraine headache, pansinusitis. Patient was treated first with dihydroergotamine 1 mg and 10 mg of Reglan. Patient had some improvement with pain but did not feel comfortable going home and was repeated 1 mg of dihydroergotamine and 1 mg of Dilaudid. Patient did have full resolution of headache and was discharged home with recommendations to follow-up with primary care or neurologist. No radiology studies performed this visit Discharge Plan Discharge Patient Disposition: Home Clinical Impression: Headache Qualifiers: Headache type: unspecified Headache chronicity pattern: chronic headache Intractability: intractable Qualified Code(s): R51.9 - Headache, unspecified Condition: Stable Prescriptions: No Action insulin aspart U-100 [Novolog FlexPen U-100 Insulin] 100 unit/mL (3 mL) insulin pen 10 unit SUBCUT TID PRN (Reason: Hyperglycemia) Rx Instructions: SLIDING SCALE losartan 25 mg tablet 25 mg PO DAILY citalopram 40 mg tablet 40 mg PO DAILY pioglitazone [Actos] 30 mg tablet 30 mg PO DAILY Levar Campa U-100 Insulin 100 unit/mL (3 mL) insulin pen 80 unit SUBCUT BID hyoscyamine sulfate 0.125 mg tablet 0.125 mg PO QID PRN (Reason: Stomach Upset) amitriptyline 25 mg tablet 25 mg PO BEDTIME verapamil 80 mg tablet 80 tab PO .QOD PM atorvastatin 40 mg Tablet 40 mg PO BEDTIME diphenhydramine HCl 50 mg Capsule 50 mg PO BEDTIME PRN (Reason: Insomnia) ondansetron 4 mg tablet,disintegrating 4 mg PO Q6H PRN (Reason: nausea and vomiting) Qty: 14 0RF triamcinolone acetonide 0.5 % cream 1 applic TOPICAL BID metoclopramide HCl 10 mg tablet 10 mg PO .QOD PM sumatriptan succinate 6 mg/0.5 mL pen injector 6 mg SUBCUT DAILY PRN (Reason: Migraine Headache) hydrocortisone [Anusol-HC] 2.5 % cream with perineal applicator 1 applic VA QID PRN (Reason: Hemorrhoids) Rx Instructions: may repeat in 10 days gabapentin 300 mg capsule 600 mg PO QID PRN (Reason: Pain) Rx Instructions: TAKE 2 CAPSULES BY MOUTH 4 TIMES A DAY Discharge Orders: Discharge ED (Routine); Ordered 08/09/23 Ordered By: Augusto Mccollum Referrals: Enedina Brizuela [Primary Care Provider] - Discharge Diet: Usual diet Discharge Activity: Increase activity as tolerated Patient Instructions: Headache - Migraine (Adult) Activity Restrictions/Additional Instructions: Follow-up with primary care or neurologist for further evaluation and treatment. Return to ER for new concerns. Coding Level of Care Code ED Trial Attorney for Velia Cantu
[2023-08-09] MEDS: dihydroergotamine 1 mg/mL Inj IVP ×2 (17:00→18:09)
[2023-08-09] MEDS: metoclopramide 5 mg/mL SDV 2 mL 10 MG IVP (17:03)
[2023-08-09] MEDS: sodium chloride 0.9% 250 ML IV (17:04)
[2023-08-09 18:09] VITALS: RESP 16; O2SAT 94
[2023-08-09] MEDS: HYDROmorphone 1 mg/mL INJ 1 mL IVP (18:09)
[2023-08-09 19:05] VITALS: BP 138/83; PULSE 89; RESP 14; O2SAT 96
[2023-08-09 19:06] VITALS: BP 138/83; PULSE 89; O2SAT 96
== END 2023-08-09 19:07 | disposition home or self-care (01) ==
PROVIDERS: Emergency Provider Nurse Practitioner Family; PCP Registered Nurse
DX: R51.9 Headache, unspecified (principal); Z79.4 Long term (current) use of insulin; E78.5 Hyperlipidemia, unspecified; I10 Essential (primary) hypertension; E11.9 Type 2 diabetes mellitus without complications; F17.210 Nicotine dependence, cigarettes, uncomplicated
CPT/HCPCS: 96361; 96374; 96375; 96376; 99284; J1110; J1170; J2765; J7050

== ENCOUNTER 2023-10-16 10:49 | Emergency (ER) | payer BC, SELFPAY ==
[2023-10-16 10:59] VITALS: BP 142/96; PULSE 132; RESP 20; TEMP 36.3; O2SAT 94
--- NOTE | 2023-10-16 11:07 | XR_ITS ---
WS: [id number] PORTABLE CHEST HISTORY: cough COMPARISON: None available. Lungs are clear and well expanded. No pleural effusion or pneumothorax. Cardiac size: Normal. Mediastinum/Aorta: Normal mediastinum. No osseous abnormality seen. IMPRESSION: Unremarkable portable chest.
--- NOTE | 2023-10-16 11:08 | ED_ITS ---
HPI - General Adult 2 General: Chief complaint: General Medical Stated complaint: weakness, fever, chills, n/v Time Seen by Provider: 10/16/23 11:02 Source: patient Mode of arrival: ambulatory Limitations: no limitations History of Present Illness: 43-year-old female states that last 6 da ys she has been having nausea vomiting states she is also had a productive cough. She had sick contacts with her child last week has been sick ever since. She has not been able to tolerate any p.o. and is felt very dehydrated she had diffuse abdominal cramping denies any diarrhea. Associated symptoms: Reports dyspnea, nausea and vomiting; Deny chest pain, headache(s) or rash Review of Systems 2 Const: Reports: fever(s) and chills ENMT: Denies: throat pain or dental pain Card: Denies: chest pain Resp: Reports: dyspnea and non-productive cough GI: Reports: abdominal pain, nausea and vomiting; Denies: diarrhea Musc: Denies: neck pain or back pain Skin/Breast: Denies: rash Neuro: Denies: headache(s) PFSH ED 2 PFSH: Medical History Endometriosis PCOS (polycystic ovarian syndrome) Gastroparesis Family history of colon cancer Anemia Hyperlipidemia Diabetes Hypertension Surgical History Hx of knee surgery bilateral H/O esophagogastroduodenoscopy (02/03/20) Status post colonoscopy (02/03/20) normal History of hysterectomy (~2016) History of back surgery (~2018) History of laparoscopic cholecystectomy (~2006) Family History Denies family history of Anesthesia complication Bleeding disorder Social History Smoking and tobacco/nicotine status: current every day tobacco/nicotine user (Half a pack-a full pack ) cigarettes Packs smoked per day: 1 Second hand smoke exposure: No Alcohol intake: never Substance/Drug Use: never Adopted: No Caregiver/support person: Yes Lives independently: Yes Household members: spouse Housing: House Marital status: service: No 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 Pets and animals: No Leisure activites: exercise Sexually active: Yes Do you think of yourself as: Straight/Heterosexual Current gender identity: Female [place]/Orthodoxy: Religious Physical Exam 2 Const: COMMON NORMALS: patient oriented x3 HENMT: COMMON NORMALS: normocephalic and atraumatic HEAD & SCALP: n ormocephalic and atraumatic Eye: COMMON NORMALS: Equal, round and reactive pupils present and EOMs intact bilaterally PUPIL: Yes Equal, round and reactive pupils present Neck/C-Spine: COMMON NORMALS: full ROM and supple Chest: COMMONS NORMALS: normal inspection of the chest and normal palpation of entire chest wall Resp: COMMON NORMALS: normal respiratory effort, No retractions, No use of accessory muscles and clear to auscultation bilaterally AUSCULTATION: clear to auscultation bilaterally Cardio: COMMON NORMALS: regular rhythm and No murmurs present (Cardio) R ATE: tachycardic RHYTHM: regular rhythm GI: COMMON NORMALS: Normal to inspection, nondistended, normoactive bowel sounds present, Soft to palpation, non-tender and no masses PALPATION: Yes Soft to palpation Extremity: COMMON NORMALS: normal to inspection and full ROM Neuro: COMMON NORMALS: patient oriented x3, moves all extremities and no focal motor deficits Psych: COMMON NORMALS: mental status grossly normal, Normal thought process present and cooperative THOUGHT PROCESS: Normal thought process present Skin: COMMON NORMALS: no rashes or lesions noted and no wounds GENERAL SKIN EXAM: no rashes or lesions noted Course 2 Vital Signs: Vital signs: Vital Signs Temperature 97.4 F L 10/16/23 10:59 Pulse Rate 111 H 10/16/23 12:13 Respiratory Rate 20 H 10/16/23 10:59 Blood Pressure 142/96 10/16/23 10:59 Pulse Oximetry 94 10/16/23 12:13 Oxygen Delivery Me thod Room Air 10/16/23 12:13 MDM - General Adult Medical Decision Making Patient presents here with bodyaches along with cough and vomiting she was found to have a UTI CT here showed no acute abnormality she had no vomiting here we will place her on pain meds nausea medicine and Keflex she is follow-up with PCP return if worsening. Medical Records I reviewed the patient's medical records. Lab Data I reviewed the patient's lab results. 10/16/23 11:13 10/16/23 11:13 Laboratory Results WBC 11.50 10^3/uL (3.29-11.43) H 10/16/23 11:13 RBC 5.07 10^6/uL (3.85-5.65) 10/16/23 11:13 Hgb 14.20 g/dL (11.27-16.99) 10/16/23 11:13 Hct 42.3 % (36-47) 10/16/23 11:13 MCV 83.4 fl (85-98) L 10/16/23 11:13 MCH 28.0 pg (27-33) 10/16/23 11:13 MCHC 33.6 g/dL (30-55) 10/16/23 11:13 RDW 12.6 % (12.1-15.1) 10/16/23 11:13 Plt Count 391 10^3/cmm (157-399) 10/16/23 11:13 MPV 10.8 fL (7.4-10.4) H 10/16/23 11:13 Neut % (Auto) 74.6 % 10/16/23 11:13 Lymph % (Auto) 15.0 % 10/16/23 11:13 Crenshaw % (Auto) 8.1 % 10/16/23 11:13 Eos % (Auto) 0.7 % 10/16/23 11:13 Baso % (Auto) 0.6 % 10/16/23 11:13 Neut # (Auto) 8.58 10^3/uL (1.8-7.7) H 10/16/23 11:13 Lymph # (Auto) 1.7 10^3/uL (0.8-4.8) 10/16/23 11:13 Crenshaw # (Auto) 0.9 10^3/uL (0.2-0.9) 10/16/23 11:13 Eos # (Auto) 0.1 10^3/uL (0.0-0.8) 10/16/23 11:13 Baso # (Auto) 0.1 10^3/uL (0.0-0.1) 10/16/23 11:13 Nucleated RBC % (auto) 0 % 10/16/23 11:13 Nucleated RBCs # 0.0 /100WBC 10/16/23 11:13 Specimen Type Arterial 10/16/23 11:33 Sample Site Brachial, right 10/16/23 11:33 ABG pH 7.47 (7.35-7.45) H 10/16/23 11:33 ABG pCO2 35.9 mmHg (35-45) 10/16/23 11:33 ABG pO2 53.3 mmHg (80.0-100.0) L 10/16/23 11:33 ABG PO2/FiO2 Ratio 0 10/16/23 11:33 ABG HCO3 26.1 mmol/L (22-26) H 10/16/23 11:33 ABG Base Excess 2.7 mmol/L (-2.0-2.0) H 10/16/23 11:33 Teofilo Test Pos 10/16/23 11:33 Hematocrit 43.4 % (37-47) 10/16/23 11:33 O2 Delivery Device Room air 10/16/23 11:33 FiO2 21.0 % 10/16/23 11:33 Tugboat Pilot ID Mon[place] 10/16/23 11:33 Sodium 135 mmol/L (136-145) L 10/16/23 11:13 Potassium 3.1 mmol/L (3.5-5.1) L 10/16/23 11:13 Chloride 92 mmol/L (98-107) L 10/16/23 11:13 Carbon Dioxide 24 mmol/L (22-29) 10/16/23 11:13 Anion Gap 22.1 (5-19) H 10/16/23 11:13 BUN 6 mg/dL (6-20) 10/16/23 11:13 Creatinine 0.7 mg/dL (0.5-0.9) 10/16/23 11:13 GFR Calculation 92.2 mL/min (90-130) 10/16/23 11:13 Glucose 386 mg/dL (65-115) H 10/16/23 11:13 Calculated Osmolality 294 mOsm/kg (285-295) 10/16/23 11:13 Calcium 9.4 mg/dL (8.5-10.5) 10/16/23 11:13 Magnesium 2.0 mg/dL (1.7-2.3) 10/16/23 11:13 Total Bilirubin 1.0 mg/dL (0.15-1.2) 10/16/23 11:13 AST 50 U/L (0-32) H 10/16/23 11:13 ALT 59 U/L (0-33) H 10/16/23 11:13 Alkaline Phosphatase 141 U/L (35-105) H 10/16/23 11:13 Total Protein 8.5 g/dL (6.6-8.7) 10/16/23 11:13 Albumin 4.3 g/dL (3.5-5.2) 10/16/23 11:13 Globulin 4.2 g/dL (1.3-4.6) 10/16/23 11:13 Lipase 61 U/L (13-60) H 10/16/23 11:13 Urine Color Yellow (Yellow) 10/16/23 11:17 Urine Appearance Cloudy (CLEAR) A 10/16/23 11:17 Urine pH 5 (5-7) 10/16/23 11:17 Ur Specific [place] 1.020 (1.005-1.030) 10/16/23 11:17 Urine Protein 3+ (Negative) H 10/16/23 11:17 Urine Glucose (UA) 4+ (Normal) H 10/16/23 11:17 Urine Ketones 2+ (Negative) H 10/16/23 11:17 Urine Blood 2+ (Negative) H 10/16/23 11:17 Urine Nitrate Positive (Negative) H 10/16/23 11:17 Urine Bilirubin 2+ (Negative) H 10/16/23 11:17 Urine Urobilinogen 4 mg/dL (Negative) H 10/16/23 11:17 Ur Leukocyte Esterase 2+ (Negative) H 10/16/23 11:17 Urine RBC 5-10 /hpf (0-2) H 10/16/23 11:17 Urine WBC 15-25 /hpf (0-5) H 10/16/23 11:17 Ur Squamous Epith Cells 15-25 /hpf (0-5) H 10/16/23 11:17 Ur Transition Epith Cell 0-4 /hpf 10/16/23 11:17 Amorphous Sediment Not Reportable 10/16/23 11:17 Urine Bacteria 2+ /hpf (NONE) H 10/16/23 11:17 Hyaline Casts 15-25 /lpf H 10/16/23 11:17 Urine Mucus 3+ /hpf 10/16/23 11:17 No radiology studies performed this visit Discharge Plan Discharge Patient Disposition: Home Clinical Impression: Acute cystitis, Vomiting Condition: Stable Prescriptions: New hydrocodone-acetaminophen 5-325 mg tablet 1 tab PO Q6H PRN (Reason: pain) Qty: 14 0RF cephalexin 500 mg capsule 500 mg PO TID 7 Days Qty: 21 0RF ondansetron 4 mg tablet,disintegrating 4 mg PO Q6H PRN (Reason: nausea and vomiting) Qty: 14 0RF No Action insulin aspart U-100 [Novolog FlexPen U-100 Insulin] 100 unit/mL (3 mL) insulin pen See Rx Instructions .ROUTE .COMPLEX Rx Instructions: sliding scale tid losartan 25 mg tablet 25 mg PO DAILY pioglitazone [Actos] 30 mg tablet 30 mg PO DAILY atorvastatin 40 mg Tablet 40 mg PO BEDTIME diphenhydramine HCl 50 mg Capsule 50 mg PO BEDTIME PRN (Reason: Insomnia) ondansetron 4 mg tablet,disintegrating 4 mg PO Q6H PRN (Reason: nausea and vomiting) Qty: 14 0RF Lantus U-100 Insulin 100 unit/mL solution 80 unit SUBCUT BID Rx Instructions: pt not started as of 10/16/23 states finishing basaglar amitriptyline 50 mg tablet 50 mg PO BEDTIME verapamil 120 mg tablet 120 mg PO TID citalopram 20 mg tablet 20 mg PO DAILY sumatriptan succinate 6 mg/0.5 mL pen injector See Rx Instructions .ROUTE .COMPLEX Rx Instructions: as directed as needed Basaglar KwikPen U-100 Insulin 100 unit/mL (3 mL) insulin pen 80 unit SUBCUT BID metoclopramide HCl 10 mg tablet 10 mg PO BEDTIME Discharge Orders: Discharge ED (Routine); Ordered 10/16/23 Ordered By: New Coffey Referrals: Enedina Brizuela [Primary Care Provider] - 1-3 days Discharge Diet: Advance as tolerated Discharge Activity: Resume usual activity Patient Instructions: Urinary Tract Infection in Women (DC), Acute Nausea and Vomiting (ED), Opioid Safety Coding Level of Care Code ED Conventional Underwriter for Velia Cantu
[2023-10-16 11:24] LABS: Basophils # 0.1 10^3/uL (0.0-0.1); Basophils % 0.6 %; Eosinophils # 0.1 10^3/uL (0.0-0.8); Eosinophils % 0.7 %; Hematocrit 42.3 % (36-47); Lymphocytes # 1.7 10^3/uL (0.8-4.8); Mean Corpuscular HGB Conc 33.6 g/dL (30-55); Mean Corpuscular Volume 83.4 fl (85-98); Mean Platelet Volume 10.8 fL (7.4-10.4); Monocytes # 0.9 10^3/uL (0.2-0.9); Monocytes % 8.1 %; Neutrophils # 8.58 10^3/uL (1.8-7.7); Neutrophils % 74.6 %; Nucleated Red Blood Cells % 0 %; Platelet Count 391 10^3/cmm (157-399); Red Blood Count 5.07 10^6/uL (3.85-5.65); Red Cell Distribution Width 12.6 % (12.1-15.1)
[2023-10-16 11:39] LABS: Alanine Aminotransferase 59 U/L (0-33); Albumin Level 4.3 g/dL (3.5-5.2); Alkaline Phosphatase 141 U/L (35-105); Anion Gap 22.1 (5-19); Aspartate Amino Transferase 50 U/L (0-32); Blood Urea Nitrogen 6 mg/dL (6-20); Calcium 9.4 mg/dL (8.5-10.5); Carbon Dioxide 24 mmol/L (22-29); Chloride 92 mmol/L (98-107); Creatinine Clr Calc Pharmacy 161.0818; Globulin 4.2 g/dL (1.3-4.6); Glomerular Filtration Rate 92.2 mL/min (90-130); Glucose 386 mg/dL (65-115); Lipase 61 U/L (13-60); Osmolality Calculated 294 mOsm/kg (285-295); Potassium 3.1 mmol/L (3.5-5.1); Sodium 135 mmol/L (136-145); Total Protein 8.5 g/dL (6.6-8.7)
[2023-10-16] MEDS: sodium chloride 0.9% 1,000 ML 999 ML IV (11:42)
--- NOTE | 2023-10-16 11:42 | PC.PHAR ---
pt states she takes care of her own medications-pt states she still takes lipitor 40mg daily pt states ran out 2 weeks ago ext shows last filled 03/25/24 90d/s-pt states she is using basaglar 80 units bid states then she will change management consultant to lantus vial 80 units bid-pt states still takes citalopram 20mg daily ext shows last filled 08/04/23 30d/s-pt states she has novolog flexpen ss tid states not used in a month ext doesnt show when last filled-pt states she takes reglan 10mg hs ext shows last filled 12/13/22 30d.s 10mg qid prn-pt states ran out of actos 30mg daily on sun10/10/23 ext shows last filled 03/25/23 90d/s-pt states does not take farxiga 10mg daily ext shows last filled 04/10/23 90d/s-notes are made in the pharmacy comments
[2023-10-16] MEDS: diphenhydrAMINE 50 mg/mL SDV 1mL IVP (11:43)
[2023-10-16] MEDS: metoclopramide 5 mg/mL SDV 2 mL 10 MG IVP (11:43)
[2023-10-16 11:47] LABS: ABG PCO2 35.9 mmHg (35-45); ABG PH Result 7.47 (7.35-7.45); Arterial Blood Gas Hematocrit 43.4 % (37-47); Base Excess ABG 2.7 mmol/L (-2.0-2.0); Blood Gas Allen Test Pos; Blood Gas Operator Identificat MONRO; Blood Gas Sample Site Brachial, right; Blood Gas Sample Type Arterial; HCO3 ABG 26.1 mmol/L (22-26); Oxygen Device ROOM AIR; PO2 ABG 53.3 mmHg (80.0-100.0); PO2 FiO2 Ratio Arterial Blood 0
--- NOTE | 2023-10-16 11:50 | CT_ITS ---
WS: [id number] CTA CHEST WITH CT ABDOMEN AND PELVIS. HISTORY: Nausea and vomiting for 6 days. Productive cough. TECHNIQUE: CT angiogram is performed through the chest. Additional imaging is performed through the a bdomen and pelvis with IV contrast. Sagittal and coronal reformats have been submitted. MIP imaging also reviewed. All CT scans at [facility] use at least one of these dose optimization techniqu es: automated exposure control; mA and/or kV adjustment per patient size (includes targeted exams whe re dose is matched to clinical indication); or iterative reconstruction. Contrast: Omnipaque 300; 200 cc IV. DLP: 2254.78 mGy.cm COMPARISON: 11/20/2018 Chest CTA: Adequate opacification of the proximal pulmonary arteries. No filling defect or pulmonary emboli. Normal aorta. No pneumonia. Subsegmental atelectasis at the lingula. No mediastinal or hilar adenopathy. Normal size heart. Normal sized aorta. Chest wall is negative. Abdomen CT: Liver is markedly enlarged with hepatic steatosis. Prior cholecystectomy. Normal portal v ein. Normal spleen and pancreas. Normal RIGHT adrenal gland. There is a small, subcentimeter nodule a ssociated with the LEFT adrenal gland which is too small to characterize. Normal enhancement of each kidney. No perinephric stranding or asymmetric enhancement. Very minimal atherosclerosis aorta. Tiny abdominal wall hernia. Normal appearance of the stomach. No small bowel obstruction. No colon abnormality. No appendicitis. Pelvic CT: Prior hysterectomy. No free fluid or adenopathy. [place] LEFT femoral neck. IMPRESSION: 1. No central pulmonary embolism. 2. No RIGHT heart strain. 3. No pneumonia. Subsegmental lingular atelectasis. 4. No GI tract obstruction. 5. Prior cholecystectomy and hysterectomy. 6. Hepatic steatosis and hepatomegaly.
[2023-10-16 11:51] LABS: Protein Urine 3+ (Negative); Urine Appearance Cloudy (CLEAR); Urine Color Yellow (Yellow); pH Urine 5 (5-7)
[2023-10-16 11:52] LABS: Add Urine Microscopic? YES; Bilirubin Urine 2+ (Negative); Blood Urine 2+ (Negative); Glucose Urine UA 4+ (Normal); Ketones Urine 2+ (Negative); Leukocyte Esterase Urine 2+ (Negative); Nitrate Urine Positive (Negative); Urobilinogen Urine 4 mg/dL (Negative)
[2023-10-16 11:59] LABS: Squamous Epithelial Cell Urine 15-25 /hpf (0-5); WBC Urine 15-25 /hpf (0-5)
[2023-10-16 12:00] LABS: Add Urine Culture? Yes; Bacteria Urine 2+ /hpf; Hyaline Casts Urine 15-25 /lpf; Mucus Urine 3+ /hpf; Transitional Epi Cells Urine 0-4 /hpf
[2023-10-16] MEDS: iohexol 350 mg/mL 500 mL Btl (per mL) IV ×2 (12:01→12:10)
[2023-10-16 12:13] VITALS: PULSE 111; O2SAT 94
[2023-10-16] MEDS: cefTRIAXone 1,000 MG in sodium chloride 0.9% (plus) 50 ML 100 MG IV (12:29)
[2023-10-16 13:23] VITALS: BP 139/77; PULSE 122; O2SAT 94
[2023-10-16 15:30] LABS: Glucose Point of Care 407 mg/dL (70-110)
== END 2023-10-16 13:25 | disposition home or self-care (01) ==
PROVIDERS: Emergency Provider Emergency Medicine; PCP Registered Nurse
DX: R11.11 Vomiting without nausea (principal); N30.00 Acute cystitis without hematuria; Z79.4 Long term (current) use of insulin; F17.210 Nicotine dependence, cigarettes, uncomplicated; E78.5 Hyperlipidemia, unspecified; E11.9 Type 2 diabetes mellitus without complications; I10 Essential (primary) hypertension
CPT/HCPCS: 36416; 36600; 71045; 71275; 74177; 80053; 81001; 82803; 82962; 83690; 83735; 85025; 87086; 96361; 96365; 96375; 99285; J0696; J1200; J2765; J7030; Q9967